=== PATIENT | male | born 1965 | race Caucasian/White ===

== ENCOUNTER 2016-06-12 12:30 | Emergency (ER) | payer BC, OTHER ==
[2016-06-12 12:41] VITALS: BP 154/76; PULSE 97; TEMP 98; BMI 31.4
--- NOTE | 2016-06-12 13:00 | PDOC ---
History of Present Illness <Wai Cleary - Last Filed: 06/12/16 13:37> - General History Source: Patient - History of Present Illness Initial Comments: 06/12/16 15:35 Mr. Cabrera is a 51 y/o male with a PMH of CVA, anxiety, panic attacks, presents to the ED today complaining of cough and conjunctivitis. Pt. states that his cough started last night before bedtime. He also developed a sore throat at that time. He states that his cough is dry and does not bring up any phlegm. Does not report any fevers at this time, but admits to chills and chest pain. Denies SOB, palptiations, leg pain, N/V/D. He has not traveled out of the country. No sick contacts. Received his flu shot. <Sanam Espinal - Last Filed: 06/16/16 22:14> - General Chief Complaint: Respiratory Stated Complaint: CHEST PAIN, PINK EYE Time Seen by Provider: 06/12/16 12:49 Past History <Wai Cleary - Last Filed: 06/12/16 13:37> - Past Medical History CVA: Yes (x 2: 2012) Hypercholesterolemia: Yes Kidney Stones: Yes (H/O) Psychiatric Problems: Yes (ANXIETY, PANIC ATTACKS) Seizures: No - Surgical History Abdominal Surgery: Yes Cardiac Surgery: Yes (cardiac catheterization) Cholecystectomy: Yes - Psycho/Social/Smoking Cessation Hx Anxiety: Yes Suicidal Ideation: No Smoking Status: Yes Smoking History: Current every day smoker Have you smoked in the past 12 months: Yes Number of Cigarettes Smoked Daily: 20 Information on smoking cessation initiated: No 'Breaking Loose' booklet given: 07/14/15 Hx Alcohol Use: Yes (SOCIAL) Drug/Substance Use Hx: No Substance Use Type: None Hx Substance Use Treatment: No <Sanam Espinal - Last Filed: 06/16/16 22:14> - Past Medical History Allergies/Adverse Reactions: Allergies Allergy/AdvReac Type Severity Reaction Status Date / Time enedelia flavor Allergy Intermediate Hives Verified 06/12/16 12:37 Iodinated Contrast Media - Allergy Verified 06/12/16 12:37 Oral and [Iodinated Contrast Media - IV Dye] iodine Allergy Hives Verified 06/12/16 12:37 Home Medications: Ambulatory Orders Aspirin [ASA -] 81 mg PO DAILY 12/28/13 Omeprazole [Prilosec (RX)] 40 mg PO DAILY 10/09/14 Amlodipine Besylate [Norvasc -] 5 mg PO DAILY 06/23/15 Paroxetine HCl [Paxil] 20 mg PO DAILY 07/14/15 Albuterol Sulfate Inhaler - [Ventolin HFA Inhaler -] 1 puff IH Q4H PRN #1 inhaler 06/12/16 *Physical Exam - Vital Signs Last Vital Signs Temp Pulse Resp BP Pulse Ox 98 F 97 H 19 154/76 97 06/12/16 12:37 06/12/16 12:37 06/12/16 12:37 06/12/16 12:37 06/12/16 12:37 <Wai Cleary - Last Filed: 06/12/16 13:37> - Vital Signs Last Vital Signs Temp Pulse Resp BP Pulse Ox 98 F 97 H 19 154/76 97 06/12/16 12:37 06/12/16 12:37 06/12/16 12:37 06/12/16 12:37 06/12/16 12:37 - Physical Exam Comments: 06/12/16 16:27 GENERAL: The patient is awake, alert, and fully oriented, in no acute distress. HEAD: Normal with no signs of trauma. ENT: Pupils equal, round and reactive to light, extraocular movements intact, sclera anicteric, bilateral diffuse conjunctivitis. Neck supple. LUNGS: Clear to auscultation bilaterally. Normal excursion. No respiratory distress or use of accessory muscles. CV: RRR, S1/S2, no MRG. Cap refill < 2 sec. ABDOMEN: Soft, non-distended, non-tender. EXTREMITIES: Normal range of motion, no edema. NEUROLOGICAL: Normal speech, normal gait. CN II-XII grossly intact. PSYCH: Normal mood, normal affect. SKIN: Warm, dry, normal turgor, no rashes or lesions noted. <Sanam Espinal - Last Filed: 06/16/16 22:14> Heart Score/ECG Review #1 ECG reviewed & interpreted by me at: 12:35 General ECG Interpretation: Sinus Rhythm, Normal Rate (89), Normal Intervals ( RBBB), No acute ischemic changes Compared to previous ECG there are: No significant change (c/w 07/14/15) <Wai Cleary - Last Filed: 06/12/16 13:37> ED Treatment Course - LABORATORY CBC & Chemistry Diagram: 06/12/16 13:15 06/12/16 13:15 - Medications Given in the ED: ED Medications Discontinued Medications Generic Name Dose Route Start Last Admin Trade Name Celine PRN Reason Stop Dose Admin Ibuprofen 600 mg 06/12/16 13:02 06/12/16 13:22 Motrin - PO 06/12/16 13:03 600 mg ONCE ONE Administration <Wai Cleary - Last Filed: 06/12/16 13:37> - LABORATORY CBC & Chemistry Diagram: 06/12/16 13:15 06/12/16 13:15 <Sanam Espinal - Last Filed: 06/16/16 22:14> Medical Decision Making - Medical Decision Making 06/12/16 14:37 Mr. Cabrera is a 51 y/o male with a significant PMH who presents with URI complaints and some chest pain. Considering influenza, vs. pneumonia. Will r/o ACS given atypical chest pain complaints. Will order CBC, CMP, influenza swab to r/o infectious process. EKG and Cardiac profile to r/o ACS Albuterol inhaler and motrin for symptomatic relief. Will re-evaluate. 06/12/16 15:30 EKG is normal sinus rhythm with a rate of 87. Old RBBB present. No acute ischemic changes. Labs are within normal limits at this time. Influenza is negative. Pt. feels better after albuterol treatment Still waiting on troponin reading. Contacted lab and was stated they had an issue with the machine. If Trop negative will discharge. 06/12/16 16:59 Called lab for troponin. Did not moss picker at this time. Will try again 06/12/16 17:54 Troponin is negative at this time. Will discharge home <Sanam Espinal - Last Filed: 06/16/16 22:14> *DC/Admit/Observation/Transfer <Wai Cleary - Last Filed: 06/12/16 13:37> - Discharge Dispostion Admit: No <Sanam Espinal - Last Filed: 06/16/16 22:14> Diagnosis at time of Disposition: Viral upper respiratory infection - Discharge Dispostion Disposition: HOME Condition at time of disposition: Improved - Prescriptions Prescriptions: Albuterol Sulfate Inhaler - [Ventolin HFA Inhaler -] 1 puff IH Q4H PRN #1 inhaler PRN Reason: Shortness Of Breath - Referrals Referrals: Jamison Echeverria MD [Primary Care Provider] - - Patient Instructions Printed Discharge Instructions: DI for Viral Upper Respiratory Infection -- Adult Additional Instructions: You have an upper respiratory infection. Your lab work and EKG were normal today. You were prescribed an inhaler. Use it as needed for shortness of breath and cough. Keep hydrated. If you experience increasing SOB, worsening sore throat, new fevers, return to the ED
[2016-06-12] MEDS ORDERED: IBUPROFEN 600 MG TABLET (FP) PO ONE ×2 (13:02→13:07)
[2016-06-12 13:32] LABS: EOSINOPHIL 2.5 % (0-4.5); MCHC 35.2 g/dl (32.0-35.9); MEAN CELL VOLUME 88.1 fl (80-96); MEAN PLT VOLUME 9.4 fl (7.5-11.1); NEUTROPHILS 65.1 % (42.8-82.8); PLATELET COUNT 163 K/MM3 (134-434); RDW 12.5 % (11.9-15.9)
[2016-06-12] MEDS ORDERED: ALBUTEROL SO4 2.5/IPRATROPIUM 0.5 INH SOL 3 ML VIAL.NEB. NEB ONE ×2 (13:39→13:48)
--- NOTE | 2016-06-12 13:39 | PDOC ---
*Physical Exam - Vital Signs Last Vital Signs Temp Pulse Resp BP Pulse Ox 98 F 97 H 19 154/76 97 06/12/16 12:37 06/12/16 12:37 06/12/16 12:37 06/12/16 12:37 06/12/16 12:37 - Physical Exam Comments: 06/12/16 13:37 Vital signs normal. Mild bilateral conjunctivitis without chemosis or preseptal cellulitis Oropharynx clear Lungs are clear, no crackles or wheezing ED Treatment Course - LABORATORY CBC & Chemistry Diagram: 06/12/16 13:15 06/12/16 13:15 - Medications Given in the ED: ED Medications Discontinued Medications Generic Name Dose Route Start Last Admin Trade Name Freq PRN Reason Stop Dose Admin Ibuprofen 600 mg 06/12/16 13:02 06/12/16 13:22 Motrin - PO 06/12/16 13:03 600 mg ONCE ONE Administration Medical Decision Making - Medical Decision Making 06/12/16 13:38 Patient seen and evaluated with the nurse practitioner. I agree with the overall evaluation, assessment, and management with the following summary of visit: 51-year-old male presents with URI symptoms for 3 or 4 days, worsening chest congestion and setting of nasal congestion/sore throat/conjunctivitis/dry cough. No persistent chest pain or dyspnea on exertion, no orthopnea, no fevers or chills. Presentation seems most consistent with URI, likely viral bronchitis. Atypical for ACS, EKG is nonischemic, rule out pneumonia. Labs sent EKG, chest x-ray Trial of nebulizer Reassess and dispo *DC/Admit/Observation/Transfer Diagnosis at time of Disposition: Viral upper respiratory tract infection
[2016-06-12 15:42] LABS: ALK PHOS 102 U/L (45-117); ANION GAP 14 (8-16); BILIRUBIN,TOTAL 0.4 mg/dL (0.2-1.0); CALCIUM 9.3 mg/dL (8.5-10.1); CO2 21 mmol/L (21-32); GLUCOSE,RANDOM 110 mg/dL (74-106); SGPT/ALT 48 U/L (12-78); TOT PROT 7.3 g/dl (6.4-8.2)
[2016-06-12 15:45] LABS: SGOT/AST 23 U/L (15-37)
[2016-06-12 17:44] LABS: TROPONIN I < 0.02 ng/ml (0.00-0.05)
--- NOTE | 2016-06-13 23:25 | EKG ---
Test Reason : Blood Pressure : / mmHG Vent. Rate : 089 BPM Atrial Rate : 089 BPM P-R Int : 170 ms QRS Dur : 148 ms QT Int : 388 ms P-R-T Axes : 054 022 054 degrees QTc Int : 472 ms NORMAL SINUS RHYTHM RIGHT BUNDLE BRANCH BLOCK INFERIOR INFARCT (CITED ON OR BEFORE 23-JUN-2015) ABNORMAL ECG WHEN COMPARED WITH ECG OF 14-JUL-2015 20:25, NO SIGNIFICANT CHANGE WAS FOUND Confirmed by BLACK DONOHUE MD ([id number]) on 06/13/2016 11:25:41 PM Referred By: Confirmed By:BLACK DONOHUE MD
== END 2016-06-12 18:25 | disposition home or self-care (01) ==
LOC: JER 12:30
PROC: 3E0F7GC Introduction of Other Therapeutic Substance into Respiratory Tract, Via Natural or Artificial Opening (ICD-10-PCS; principal; 2016-06-12)
DX: J06.9 Acute upper respiratory infection, unspecified (principal); R07.89 Other chest pain; Z98.61 Coronary angioplasty status; Z86.73 Personal history of transient ischemic attack (TIA), and cerebral infarction without residual deficits; F41.0 Panic disorder [episodic paroxysmal anxiety]
CPT/HCPCS: 36415; 71020-TC; 80053; 82550; 82553; 84484; 85025; 87804; 93005; 93010; 99281-25

== ENCOUNTER 2018-11-17 11:00 | Emergency (ER) | payer BC ==
[2018-11-17 11:05] VITALS: BP 124/80; PULSE 91; TEMP 98.6; BMI 30.1
--- NOTE | 2018-11-17 11:21 | PDOC ---
History of Present Illness - General Chief Complaint: Ear Problem Stated Complaint: LT. EAR PAIN Time Seen by Provider: 11/17/18 11:06 History Source: Patient - History of Present Illness Associated Symptoms: denies: fever/chills, headaches (L ear pain) Past History - Travel Traveled outside of the country in the last 30 days: No Close contact w/someone who was outside of country & ill: No - Past Medical History Allergies/Adverse Reactions: Allergies Allergy/AdvReac Type Severity Reaction Status Date / Time enedelia flavor Allergy Intermediate Hives Verified 11/17/18 11:04 Iodinated Contrast- Oral and Allergy Verified 11/17/18 11:04 IV Dye [Iodinated Contrast Media - IV Dye] iodine Allergy Hives Verified 11/17/18 11:04 Home Medications: Ambulatory Orders Aspirin [ASA -] 81 mg PO DAILY 12/28/13 Amlodipine Besylate [Norvasc -] 5 mg PO DAILY 06/23/15 Paroxetine HCl [Paxil] 20 mg PO DAILY 07/14/15 Atorvastatin Ca [Lipitor] 20 mg PO HS 11/17/18 Neomycin/Polymyxn/Hc [Cortisporin Otic Suspenstion -] 5 drop AD TID 10 Days #1 bottle 11/17/18 CVA: Yes (x 2: 2011) COPD: No Hypercholesterolemia: Yes Kidney Stones: Yes (H/O) Psychiatric Problems: Yes (ANXIETY, PANIC ATTACKS) Seizures: No - Surgical History Abdominal Surgery: Yes Cardiac Surgery: Yes (cardiac catheterization) Cholecystectomy: Yes - Suicide/Smoking/Psychosocial Hx Smoking Status: Yes Smoking History: Current every day smoker Have you smoked in the past 12 months: Yes Number of Cigarettes Smoked Daily: 10 Information on smoking cessation initiated: No 'Breaking Loose' booklet given: 03/30/17 Hx Alcohol Use: Yes (occasional) Drug/Substance Use Hx: No Substance Use Type: None Hx Substance Use Treatment: No Review of Systems - Review of Systems Is the patient limited Chadian proficient: No Constitutional: No: Chills, Fever HEENTM: Yes: Ear Pain. No: Ear Discharge, Nose Congestion, Hearing Loss, Throat Pain, Throat Swelling Respiratory: No: Shortness of Breath Cardiac (ROS): No: Chest Pain Neurological: No: Headache, Numbness, Weakness, Dizziness *Physical Exam - Vital Signs Last Vital Signs Temp Pulse Resp BP Pulse Ox 98.6 F 91 H 18 124/80 99 11/17/18 11:02 11/17/18 11:02 11/17/18 11:02 11/17/18 11:02 11/17/18 11:02 - Physical Exam General Appearance: Yes: Nourished HEENT: positive: Other (L ear:" external canal with swelling and erythema, TM wnl b/l) Neck: positive: Supple Respiratory/Chest: positive: Lungs Clear, Normal Breath Sounds Cardiovascular: positive: Regular Rhythm, Regular Rate, S1, S2 Neurologic: positive: supervisor of communications II-XII NML intact, Fully Oriented, Alert, Normal Mood/ Affect, Normal Response, Motor Strength 09/15 Medical Decision Making - Medical Decision Making 53y/o M with L ear discomfort X 4 days denies trauma, hearing loss, fever, chills exam consistent with Left OE Rx for antibiotics sent to pharmacy *DC/Admit/Observation/Transfer Diagnosis at time of Disposition: Otitis externa Qualifiers: Otitis externa type: unspecified type Chronicity: acute Laterality: left Qualified Code(s): H60.502 - Unspecified acute noninfective otitis externa, left ear - Discharge Dispostion Disposition: HOME Condition at time of disposition: Stable Decision to Admit order: No - Prescriptions Prescriptions: Neomycin/Polymyxn/Hc [Cortisporin Otic Suspenstion -] 5 drop AD TID 10 Days #1 bottle - Referrals Referrals: Jamison Echeverria RES [Primary Care Provider] - - Patient Instructions Printed Discharge Instructions: Otitis Externa Additional Instructions: Please use antibiotics drops a prescribed follow up with your primary care doctor take motrin or Tylenol for pain return to the ER if worsening symptoms occurs - Post Discharge Activity
[2018-11-17] MEDS ORDERED: IBUPROFEN 400 MG TABLET (FP) PO ONE ×2 (11:22→11:24)
== END 2018-11-17 11:26 | disposition home or self-care (01) ==
LOC: JERFT 11:00
DX: H60.502 Unspecified acute noninfective otitis externa, left ear (principal); F17.210 Nicotine dependence, cigarettes, uncomplicated; E70.0 Classical phenylketonuria; F41.9 Anxiety disorder, unspecified
CPT/HCPCS: 99281-25

== ENCOUNTER 2018-11-27 12:20 | Inpatient (IN) | payer BC ==
[2018-11-27 12:33] VITALS: BMI 30.1
--- NOTE | 2018-11-27 14:06 | PDOC ---
History of Present Illness - General Chief Complaint: Lightheaded Stated Complaint: DIZZY/RUSSO/NECK PAIN/CLOGGED EARS Time Seen by Provider: 11/27/18 13:16 History Source: Patient, Significant Other (Girlfriend present at bedside.), Old Records Exam Limitations: No Limitations - History of Present Illness Initial Comments: HPI: 53 y/o male presenting to [facility] ER complaining one week of worsening of right sided neck pain with radiation into the right occiput and to the right shoulder. Pain made worse with right lateral rotation and right lateral flexion of the neck. Associates numbness overlying right shoulder with these movements. Further complaining that both ears feel clogged, that he is having trouble formulating thoughts, and dyspnea on exertion without chest pain or palpitations. Endorses chronic right shoulder pain with known cervical radiculopathy on MRI from 2016. Has not followed up with neurosurgeon. No personal or familial h/o of blood clots. No recent travel, unilateral calf pain, or cancer diagnosis. PCP: Dr. 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 No periods of breathlessness at rest. GI: Denies vomiting or diarrhea : Denies painful urination or hematuria. MSK: Denies recent trauma Skin: Denies new rashes Neuro: Denies new numbness or tingling or weakness Endocrine: Denies polyuria Heme: Denies bleeding or bruising Physical Examination: Constitutional: Well-developed, well-nourished adult male in no acute distress or obvious discomfort. Muscular body habitus. Found sitting upright on edge of hospital bed. Alert and oriented x4. Answered all questions appropriately and completely. Speech was non-labored, non-pressured. Head: Normocephalic. No obvious external signs of trauma. Eyes: Sclerae white. Ears: External auditory canals and tympanic membranes pearly calabrese. Hearing grossly intact. Nose: No nasal discharge. Throat: Oral cavity and pharynx normal. No inflammation, swelling, exudate, or lesions. Teeth and gingiva in good general condition. Neck: Tenderness to right lateral neck. Right lateral rotation limited when compared to left. Trachea is midline. No c-spine tenderness or step off. No overlying skin changes or signs of trauma. Cardiovascular / Chest: Regular rate and regular rhythm. No murmur, rubs, clicks , or gallops. Peripheral pulses: radial pulses full. Respiratory: Breathing unlabored. Equal chest rise and fall. Clear to auscultation bilaterally. No stridor, no wheezing, no rhonchi. Gastrointestinal: abdomen is soft, non-tender, non-distended. Neuro: Alert and oriented. Moving all four extremities spontaneously. Upper extremity: proximal and distal strength 5/5. [facility] Director strength 5/5 - equal and symmetric. No nuchal rigidity. Skin: Warm, dry, and intact. Psych: Affect: appropriate. Mood: normal. MDM: *Reviewed vital signs, nursing notes, and prior visit documentation (if available). 53 y/o male presenting with right sided neck pain, sensation of bilateral ear fullness, and vague sense of impaired mentation. Known h/o of cervical radiculopathy based on MRI from 2016, for which the pt has failed to f/u with neurosurgery as referred. Afebrile. Vitals unremarkable for hypotension or tachycardia. Suspect likely worsening of radiculopathy. Low suspicion for CVA or carotid dissection but will investigate further given previous CVA. Pt is allergic to medical iodine so will obtain non-contrast head and c-spine CTs. EKG unremarkable for ischemic changes. No change when compared to previous study dated 12 Jun 2016. Troponin not elevated. Will not obtain three hour troponin given week long duration of symptoms. CBC unremarkable for leukocytosis. CMP unremarkable for significant electrolyte derangement. CXR unremarkable for acute cardiopulmonary process. Head CT unremarkable for evidence of acute intracranial process. C2-C3 and C3-C4 right foraminal stenosis noted. 15:51 Telephone discussion with neurosurgeon Dr. Mccray. Verbally appraised of the pts HPI, ED course, and current plan of management. Suggested cervical MRI to further evaluate the pain. 20:[address] Mccray, who reviewed the cervical MRI. Will evaluate the pt in the emergency department. 21:56 Pt evaluated bedside by Dr. Meier. Consult note pending. Pt would like to be discharged home and return for semi-elective procedure. Pt to call Dr. Sandoval clinic tomorrow for further instructions. Rigid cervical collar applied. Pt to f/u w/ PCP tomorrow for further evaluation and pre-op clearance. Return precautions provided. Copies of todays results provided. Pts PCP, Dr. Jamison Echeverria, called and requested the pt be admitted to his service. Pt discussed his symptoms via telephone with Dr. Echeverria and then agreed to be admitted. Rachid Morales M.D., PGY2 Emergency Medicine Resident Past History - Past Medical History Allergies/Adverse Reactions: Allergies Allergy/AdvReac Type Severity Reaction Status Date / Time enedelia flavor Allergy Intermediate Hives Verified 11/27/18 12:57 Iodinated Contrast- Oral and Allergy Verified 11/27/18 12:57 IV Dye [Iodinated Contrast Media - IV Dye] iodine Allergy Hives Verified 11/27/18 12:57 Home Medications: Ambulatory Orders Aspirin [ASA -] 81 mg PO DAILY 12/28/13 Amlodipine Besylate [Norvasc -] 5 mg PO DAILY 06/23/15 Paroxetine HCl [Paxil] 20 mg PO DAILY 07/14/15 Alprazolam [Xanax] 0.25 mg PO PRN PRN 11/27/18 Omeprazole Magnesium [Prilosec] 10 mg PO DAILY 11/27/18 Rosuvastatin Calcium 20 mg PO HS 11/27/18 CVA: Yes (x 2: 2011) COPD: No Hypercholesterolemia: Yes Kidney Stones: Yes (H/O) Psychiatric Problems: Yes (ANXIETY, PANIC ATTACKS) Seizures: No - Surgical History Abdominal Surgery: Yes Cardiac Surgery: Yes (cardiac catheterization) Cholecystectomy: Yes - Immunization History Immunization Up to Date: No - Suicide/Smoking/Psychosocial Hx Smoking Status: Yes Smoking History: Current every day smoker Have you smoked in the past 12 months: Yes Number of Cigarettes Smoked Daily: 20 Information on smoking cessation initiated: No 'Breaking Loose' booklet given: 03/30/17 Hx Alcohol Use: No Drug/Substance Use Hx: No Substance Use Type: None Hx Substance Use Treatment: No *Physical Exam - Vital Signs Last Vital Signs Temp Pulse Resp BP Pulse Ox 98.5 F 78 18 142/93 100 11/27/18 12:30 11/27/18 12:30 11/27/18 12:30 11/27/18 12:30 11/27/18 12:30 ED Treatment Course - LABORATORY CBC & Chemistry Diagram: 11/27/18 14:05 11/27/18 14:05 - RADIOLOGY Radiology Studies Ordered: Category Date Time Status CERVICAL SPINE CT W/O CONTR [CT] Stat CT Scan 11/27/18 14:[address] WITHOUT CONTRAST [CT] Stat CT Scan 11/27/18 14:03 Ordered CHEST PA & LAT [RAD] Stat Radiology 11/27/18 13:53 Ordered Medical Decision Making - Medical Decision Making 11/27/18 18:[address] Mccray. Please obtain MRI. *DC/Admit/Observation/Transfer Diagnosis at time of Disposition: Neck pain on right side - Discharge Dispostion Condition at time of disposition: Improved Decision to Admit order: Yes - Referrals Referrals: Jamison Echeverria MD [Primary Care Provider] - Carlos Alberto Mccray MD, FAANS [Staff Physician] - - Patient Instructions Printed Discharge Instructions: DI for Cervical Radiculopathy Additional Instructions: You were seen today for right shoulder and neck pain. Your symptoms are likely for cervical radiculopathy. You were evaluated by Dr. Mccray, a neurosurgeon. Follow his recommendations. Call his clinic tomorrow for further instructions on the date of surgery. Follow up with your primary care doctor tomorrow to discuss the surgery. A copy of todays results are attached to this packet. Take it to the appointment so your doctor can review them. Go to the nearest emergency department if your condition worsens or you feel like you need additional emergency evaluation. Print Language: CANADIAN - Post Discharge Activity Forms/Work/School Notes: Back to Work
[2018-11-27 14:13] LABS: BASO % 1.3 % (0-2.0); EOS % 3.4 % (0-4.5); HEMATOCRIT 39.4 % (35.4-49); HEMOGLOBIN 13.5 GM/dL (11.7-16.9); LYMPH % 25.5 % (8-40); MCH 31.2 pg (25.7-33.7); MCHC 34.4 g/dl (32.0-35.9); MEAN CELL VOLUME 90.9 fl (80-96); MONO % 7.5 % (3.8-10.2); NEUT % 62.3 % (42.8-82.8); PLATELET COUNT 197 K/MM3 (134-434); RBC 4.33 M/mm3 (4.00-5.60); RDW 12.5 % (11.9-15.9); WHITE BLOOD COUNT 7.2 K/mm3 (4.0-10.0)
[2018-11-27 14:39] LABS: ALBUMIN 4.4 g/dl (3.4-5.0); BILIRUBIN,TOTAL 0.3 mg/dL (0.2-1); BLOOD UREA NITROGEN 13.9 mg/dL (7-18); CALCIUM 9.6 mg/dL (8.5-10.1); POTASSIUM 4.5 mmol/L (3.5-5.1); TOT PROT 7.6 g/dl (6.4-8.2)
--- NOTE | 2018-11-27 15:54 | EKG ---
Test Reason : Blood Pressure : / mmHG Vent. Rate : 065 BPM Atrial Rate : 065 BPM P-R Int : 202 ms QRS Dur : 152 ms QT Int : 418 ms P-R-T Axes : 041 046 048 degrees QTc Int : 434 ms NORMAL SINUS RHYTHM RIGHT BUNDLE BRANCH BLOCK CANNOT RULE OUT INFERIOR INFARCT (CITED ON OR BEFORE 23-JUN-2015) ABNORMAL ECG WHEN COMPARED WITH ECG OF 12-JUN-2016 12:35, NO SIGNIFICANT CHANGE WAS FOUND Confirmed by RED PRINCE MD ([id number]) on 11/27/2018 3:54:00 PM Referred By: Confirmed By:RED PRINCE MD
--- NOTE | 2018-11-27 16:39 | PDOC ---
Documentation entered by Franchesca Wang SCRIBE, acting as scribe for Evelyn Love MD. Evelyn Love MD: This documentation has been prepared by the Felipe turner Brenda, SCRIBE, under my direction and personally reviewed by me in its entirety. I confirm that the documentation accurately reflects all work, treatment, procedures, and medical decision making performed by me. Attending Attestation - Resident Resident Name: Rachid Morales - ED Attending Attestation I have performed the following: I have examined & evaluated the patient, The case was reviewed & discussed with the resident, I agree w/resident's findings & plan, Exceptions are as noted - HPI HPI: 11/27/18 15:45 The patient is a 53 year old male, with a significant PMH of cervical radiculopathy , CVA and otaus externus who presents to the emergency department with 1.5 weeks of progressively worsening right sided neck pain that radiates to the right occiput and right shoulder. He reports that the pain is aggravated by turning his head to the right and lifting his arms above shoulder level. The patient also reports associated feelings of clogged ears and discombobulated thoughts. He notes that for the past week, he has been experiencing decreased exercise intolerance, where he is more commonly out of breath. The patient denies chest pain. Denies fever, chills, nausea, vomiting, diarrhea and constipation. Denies dysuria, frequency, urgency and hematuria. Allergies: Iodine Past surgical history: Social history: Smoker, stopped 3 days ago, Endorses occasional weekend social drinking, Denies illicit drugs. 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 PCP: Dr. Jamison Echeverria - Physicial Exam PE: 11/27/18 15:49 GENERAL: The patient is in no acute distress. HEAD: Normal with no signs of trauma. EYES: PERRLA, EOMI, sclera anicteric, conjunctiva clear. ENT: Ears normal, nares patent, oropharynx clear without exudates. Moist mucous membranes. NECK: Normal range of motion, supple without lymphadenopathy, JVD, or masses. LUNGS: Breath sounds equal, clear to auscultation bilaterally. No wheezes, and no crackles. HEART:Regular rate and rhythm, normal S1 and S2 without murmur, rub or gallop. ABDOMEN: Soft, nontender, normoactive bowel sounds. No guarding, no rebound. No masses palpable. EXTREMITIES: Normal range of motion, no edema. No clubbing or cyanosis. No erythema, or tenderness. NEUROLOGICAL: Cranial nerves II through XII grossly intact. Normal speech. No focal neurological deficits. MUSCULOSKELETAL: Back non-tender to palpation, no CVA tenderness SKIN: Warm, Dry, normal turgor, no rashes or lesions noted. - Medical Decision Making 11/27/18 16:24 Mr. Cabrera Is a 53-year-old male with a history of cervical radiculopathy who presents emergency department with a complaint of neck pain as well as upper shoulder pain. His symptoms began several years ago. He is status post an MRI of the cervical spine which showed multilevel disc herniation. Initial plan was physical therapy which she had. Patient states this minimally helped his symptoms. Patient notes a progressive worsening of his symptoms over the past 3-4 months. 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 Patient denies any weakness or numbness. His predominant symptom is pain. He became concerned because he has noticed that his ears feel full and he intermittently feels like his brain is foggy On examination Sensation in tact Motor 5/5 in upper extremity and hands bilaterally Will do: Labs CT head and C spine NSGY consult Twelve-lead EKG was performed and reviewed by me. There is normal sinus rhythm with a normal rate. The axis is normal. The intervals are normal. There are no ST or T wave abnormalities. Impression: Normal twelve-lead EKG 11/27/18 16:28 CT head - No acute ischemic changes, no mass or mass effect Old infarct noted in the right posterior, temporal, occipital lobe (watershed zone between right MCA and MANAGEMENT SPECIALIST) 11/27/18 16:37 EKG - NSR rate of 65 bpm, RBBB, 11/27/18 16:38 Laboratory Tests 11/27/18 11/27/18 11/27/18 14:05 14:05 14:05 WBC 7.2 Hgb 13.5 Hct 39.4 Plt Count 197 D BUN 13.9 Creatinine 1.0 Troponin I < 0.02 11/27/18 18:[address] Mccray He will see this patient in the ER MRI ordered Signed out to overnight team pending MRI
[2018-11-27] MEDS ORDERED: diazePAM 2 MG TABLET PO ONE (17:57)
[2018-11-27] MEDS ORDERED: diazePAM 2 MG TABLET ONE (17:58)
--- NOTE | 2018-11-27 23:01 | CONSULT ---
Consult - text type - Consultation Consultation Note: NEUROSURGERY CONSULTATION Tremaine Cabrera is a pleasant 53year old male who has achief complaint of acute right arm and neck pain. Although the patient has a long history of neck and arm pains, he describes acute progression today after an injury at the gym last week. He describes severe neck pain which is increased by neck motion as well as Right arm radicular pains. The patient was referred to [facility] by Dr. Rachid Morales in the [facility] ER for further evaluation and management. The patient works in [employer] and wears a hard hat. He has struck his head many times in the past. The patient has numbness and tingling in the hands. The patienthas not been dropping things and has no current problems with fine motor tasks although he acknowledges a history of being clumsy. On Physical Examination, he has hyperreflexia in his lower extremities. He has some diminished sensation in his hands and severe limitations of neck range of motion. He has positive Spurling' s sign Right greater than Left. MRI Cervical demonstrates degenerative loss of Lordosis and moderate to severe spondylosis with osteophytes, disc bulges and hypertrophic posterior longitudinal ligament and ligamentum flavum which when combined with a congenitally narrow spinal canal results in effacement of the ventral and dorsal CSF spaces and deformation of the Cervical spinal cord. There appear to be severe facet arthropathy with possible acute hemorrhage/ligamentous injury which are worst at C23 and C34. The AP spinal canal diameters are: C23 = 8.5mm; C34 = 8.1mm; C45 = 10mm; C56 = 8.5mm; & C67 = 9.0mm. There has been interval progression since the last MRI in May 2015. There are several findings consistent with acute traumatic injury including fluid and facet arthropathy at C34 and edema within the bones at C3 and C4 extending into the laminae. The facets of C23 and C34 are hypertrophic, particularly on the Right. After review of his symptoms and imaging, the patient would likely benefit from decompression and stabilization in the Cervical spine. I described the risks, benefits and alternativesof C2-7 Laminectomies with C2-5 osteotomies and correction of deformity with C2-C7 lateral mass/pars instrumentation and fusion in great detail. I explained that the risks included, but were not limited to: , coma, paralysis, bleeding, infection, CSF leak possibly requiring spinal drainage or additional surgery, failure to fuse, failure to improve, instrumentation migration/malposition/malfunction and the need for additional surgery. I offered the patient the option to seek another opinion or another surgeon. All questions were answered. Informed consent was obtained. I made a series of illustrations to outline the anatomy, pathology, surgical approaches and potential complications. I explained that there would remain a 20% possibility that a subsequent ventral procedure would be required. The patient asks that we proceed with Cervical surgery as described. He wishes to speak with his children prior to the surgery and is considering going home although I explained that this may delay his surgery. Patient's PCP is Dr. Jamison Jones on [place], [place]. - I have contacted Dr. Jones and we have discussed his case and medical fitness to proceed. We discussed the advisability of the patient remaining in the hospital for surgical treatment and IV steroids with GI prophylaxis. - Surgery is tentatively scheduled for Thursday November 29, 2018 - I offered the patient a Cervical collar to protect himself and gave him and his toys and games hand finisher a list of warning signs which would prompt further evaluation or expedited surgery.
[2018-11-28] MEDS: DEXAMETHASONE SOD PHOSPHATE 4 MG/1 ML VIAL IVPUSH SCH ×4 (04:23→22:31)
[2018-11-28] MEDS: amLODIPine BESYLATE 5 MG TABLET (FP) PO SCH (09:49)
[2018-11-28] MEDS: NAPROXEN 500 MG TABLET (FP) PO SCH ×3 (09:49→22:35)
[2018-11-28] MEDS: PARoxetine HCL 10 MG TABLET PO SCH (09:49)
--- NOTE | 2018-11-28 10:41 | HP ---
Admitting History and Physical - Admission Chief Complaint: while working out neck pain w decreased rom. ? neare syncope due to pain uext slyitly numb. 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: Yes: Alzheimer's Psych: Yes: Anxiety, Depression - Past Surgical History Additional Past Surgical History: lap choly - Smoking History Smoking history: Current every day smoker Have you smoked in the past 12 months: Yes Aproximately how many cigarettes per day: 20 - Alcohol/Substance Use Hx Alcohol Use: No History of Substance Use: reports: Cocaine - Social History Usual Living Arrangement: Yes: Alone ADL: Independent History of Recent Travel: No Home Medications - Allergies Allergies/Adverse Reactions: Allergies Allergy/AdvReac Type Severity Reaction Status Date / Time enedelia flavor Allergy Intermediate Hives Verified 11/27/18 12:57 Iodinated Contrast- Oral and Allergy Verified 11/27/18 12:57 IV Dye [Iodinated Contrast Media - IV Dye] iodine Allergy Hives Verified 11/27/18 12:57 - Home Medications Home Medications: Ambulatory Orders Aspirin [ASA -] 81 mg PO DAILY 12/28/13 Amlodipine Besylate [Norvasc -] 5 mg PO DAILY 06/23/15 Paroxetine HCl [Paxil] 20 mg PO DAILY 07/14/15 Alprazolam [Xanax] 0.25 mg PO PRN PRN 11/27/18 Omeprazole Magnesium [Prilosec] 10 mg PO DAILY 11/27/18 Rosuvastatin Calcium 20 mg PO HS 11/27/18 Review of Systems - Review of Systems Constitutional: reports: Weakness (neck coller) Eyes: reports: No Symptoms HENT: reports: No Symptoms, Other (neck pain scale 3) Neck: reports: Decreased ROM Cardiovascular: reports: No Symptoms Respiratory: reports: No Symptoms Gastrointestinal: reports: No Symptoms Genitourinary: reports: No Symptoms Breasts: reports: No Symptoms Reported Musculoskeletal: reports: No Symptoms Integumentary: reports: No Symptoms Neurological: reports: No Symptoms, Numbness Endocrine: reports: No Symptoms Hematology/Lymphatic: reports: No Symptoms Psychiatric: reports: Anxiety, Depression Physical Examination Vital Signs: Vital Signs Temperature 98.1 F 11/28/18 03:30 Pulse Rate 65 11/28/18 04:00 Respiratory Rate 18 11/28/18 03:30 Blood Pressure 132/82 11/28/18 04:00 O2 Sat by Pulse Oximetry (%) 97 11/28/18 03:30 Constitutional: Yes: Well Nourished Eyes: Yes: WNL HENT: Yes: WNL Neck: Yes: Decreased ROM Cardiovascular: Yes: WNL Respiratory: Yes: WNL Gastrointestinal: Yes: WNL Peripheral Pulses WNL: Yes Integumentary: Yes: WNL Wound/Incision: Yes: Clean/Dry Neurological: Yes: WNL ...Motor Strength: WNL Psychiatric: Yes: WNL Labs: CBC, BMP 11/27/18 14:05 11/27/18 14:05 Assessment/Plan cleared for sx neck for am npo after mn
--- NOTE | 2018-11-28 14:59 | PN ---
Progress Note (short form) - Note Progress Note: Patient remains Neurologically stable. Discussed surgery and treatment plans once again. All questions answered. Plan for surgery in AM. -NPO p MN -GI/DVT prophylaxis
[2018-11-29] MEDS: DEXAMETHASONE SOD PHOSPHATE 4 MG/1 ML VIAL IVPUSH SCH ×3 (02:28→21:29)
[2018-11-29] MEDS ORDERED: THROMBIN (BOVINE) 20,000 UNIT VIAL TP ONE (08:05)
[2018-11-29] MEDS ORDERED: LIDOCAINE 1%-EPI 1:100,000 30 ML MDV IJ ONE (08:05)
[2018-11-29] MEDS ORDERED: BUPIVACAINE HCL/PF 0.5% (5MG/ML) 10 ML VIAL ONE (08:05)
[2018-11-29] MEDS ORDERED: GENTAMICIN SO4 80 MG/2 ML VIAL ONE (08:05)
[2018-11-29] MEDS: amLODIPine BESYLATE 5 MG TABLET (FP) PO SCH (09:31)
[2018-11-29] MEDS ORDERED: BACITRACIN 15 GM TUBE TOPICAL OINTMENT ONE (09:50)
[2018-11-29] MEDS ORDERED: LIDOCAINE HCL 0.5%, 5 MG/ML (50mL SDVIAL) ONE (10:25)
[2018-11-29] MEDS ORDERED: fentaNYL CITRATE 250 MCG/5 ML VIAL ONE ×2 (10:35)
[2018-11-29] MEDS ORDERED: PROPOFOL 20 ML ONE ×4 (10:35)
[2018-11-29] MEDS ORDERED: MIDAZOLAM HCL 2 MG/2 ML SINGLE DOSE VIAL ONE ×2 (10:35)
[2018-11-29] MEDS ORDERED: SUCCINYLCHOLINE CHLORIDE 200 MG/10 ML SYRINGE ONE (10:38)
[2018-11-29] MEDS ORDERED: ROCURONIUM BROMIDE 50 MG/5 ML SYRINGE ONE ×3 (10:38→13:26)
[2018-11-29] MEDS ORDERED: ceFAZolin SODIUM 1 GM VIAL IVPB ONE (11:00)
[2018-11-29] MEDS ORDERED: VANCOMYCIN 1,000 MG VIAL (RESTRICTED TO ID ONLY) ONE (11:00)
[2018-11-29] MEDS ORDERED: ceFAZolin SODIUM 1 GM VIAL ONE ×2 (11:00→17:35)
[2018-11-29] MEDS ORDERED: VANCOMYCIN 1,000 MG VIAL (RESTRICTED TO ID ONLY) IVPB ONE (11:10)
[2018-11-29] MEDS ORDERED: LIDOCAINE 1%/EPI 1:100000 (50 ML MULTI DOSE VIAL) INF ONE (11:12)
[2018-11-29] MEDS ORDERED: EPHEDRINE SULFATE/0.9% NACL/PF 50 MG/10 ML SYRINGE NR ONE (11:17)
[2018-11-29] MEDS: NAPROXEN 500 MG TABLET (FP) PO SCH ×2 (12:04→22:27)
[2018-11-29] MEDS: PARoxetine HCL 10 MG TABLET PO SCH (12:04)
[2018-11-29] MEDS ORDERED: PROMETHAZINE HCL 25 MG/1 ML VIAL IVPUSH PRN (12:16)
[2018-11-29] MEDS ORDERED: ONDANSETRON 4 MG/2 ML VIAL IVPUSH PRN (12:16)
[2018-11-29] MEDS ORDERED: ONDANSETRON 4 MG/2 ML VIAL ONE (12:18)
[2018-11-29] MEDS ORDERED: DEXAMETHASONE SOD PHOSPHATE 4 MG/1 ML VIAL ONE (12:18)
--- NOTE | 2018-11-29 13:35 | PN ---
Progress Note, Physician - Current Medication List Current Medications: Active Medications Amlodipine Besylate (Norvasc -) 5 mg PO DAILY [facility] Last Admin: 11/29/18 09:31 Dose: 5 mg Dexamethasone Sodium Phosphate (Decadron Injection -) 4 mg IVPUSH Q6H-IV [facility] Last Admin: 11/29/18 12:04 Dose: Not Given Diphenhydramine HCl (Benadryl Injection -) 12.5 mg IVPUSH ONCE PRN PRN Reason: FOR ITCHING Fentanyl (Sublimaze Injection -) 50 mcg IVPUSH [id number] PRN PRN Reason: PAIN-PACU ORDER X 4 DOSES ONLY Stop: 11/30/18 02:00 Hydromorphone HCl (Hydromorphone 10 Mg/50 Ml-Ns) 0.2 mg SUPERVISOR FISH BAIT PROCESSING SUPERVISOR FISH BAIT PROCESSING [facility]; Protocol Stop: 12/06/18 12:21 Lactated Ringer's (Lactated Ringers Solution) 1,000 mls @ 125 mls/hr IV ASDIR [facility] Naproxen (Naprosyn -) 500 mg PO BID [facility] Last Admin: 11/29/18 12:04 Dose: Not Given Ondansetron HCl (Zofran Injection) 4 mg IVPUSH Q6H PRN PRN Reason: NAUSEA AND/OR VOMITING Paroxetine HCl (Paxil -) 10 mg PO DAILY [facility] Last Admin: 11/29/18 12:04 Dose: Not Given Promethazine HCl (Phenergan Injection -) 12.5 mg IVPUSH Q6H PRN PRN Reason: NAUSEA-FOR RESCUE AFTER 15 MIN - Objective Vital Signs: Vital Signs Temperature 98.5 F 11/29/18 06:23 Pulse Rate 97 H 11/29/18 06:23 Respiratory Rate 18 11/29/18 06:23 Blood Pressure 130/66 11/29/18 06:23 O2 Sat by Pulse Oximetry (%) 98 11/28/18 20:18 Labs: CBC, BMP 11/27/18 14:05 11/27/18 14:05 Assessment/Plan pt in or nowq will see l;ater vss
[2018-11-29] MEDS ORDERED: BUPIVACAINE HCL/PF 0.25% (2.5MG/ML) 10 ML VIAL ONE (13:45)
[2018-11-29] MEDS ORDERED: BUPIVACAINE LIPOSOME/PF (EXPAREL) 266 MG/20 ML VIAL ONE (13:45)
[2018-11-29] MEDS ORDERED: NEOSTIGMINE METHYLSULFATE 0.5 MG/1 ML - 10 ML MDV ONE (14:30)
[2018-11-29] MEDS ORDERED: GLYCOPYRROLATE 0.2 MG/1 ML VIAL ONE (14:30)
[2018-11-29] MEDS ORDERED: HYDROmorphone *PCA* 10MG/50ML DISP.SYRIN ONE (15:29)
[2018-11-29] MEDS ORDERED: ALPRAZolam 0.25 MG TABLET PO PRN (15:30)
[2018-11-29] MEDS ORDERED: diphenhydrAMINE HCL 25 MG CAPSULE (FP) PO PRN (15:32)
[2018-11-29] MEDS: HYDROmorphone *PCA* 10MG/50ML DISP.SYRIN PCA SCH (15:40)
--- NOTE | 2018-11-29 15:41 | OP ---
Operative Note - Note: Operative Date: 11/29/18 Pre-Operative Diagnosis: Cervical spondy with radiculopathy, myelopathy Operation: C2-7 Laminectomies with C2-5 osteotomies and correction of deformity with C2-C7 lateral mass/pars instrumentation and fusion Post-Operative Diagnosis: Same as Pre-op (As well as acute C34, C56 & C67 instability/facet capsule disuption) Surgeon: Carlos Alberto Mccray Scraper Burrer: Giuseppe Parrish Anesthesiologist/CROP SPECIALIST: Jemima Valentin Anesthesia: General Estimated Blood Loss (mls): 600 Drains & Tubes with Location: CAROLYNE posterior cervical Drains, Volume Out (mls): 50 (Johnson ) Fluid Volume Replaced (mls): 2,700 (LR) Operative Report Dictated: Yes
[2018-11-29] MEDS: LACTATED RINGERS SOLUTION 1,000 ML/1,000 ML INFUS.BAG IV SCH (15:50)
[2018-11-29] MEDS ORDERED: CEFAZOLIN 1 GM/D5W 1 GM/50 ML BAG IVPB SCH (18:00)
[2018-11-29] MEDS: HEPARIN NA (PORCINE) 5,000 UNITS/ML 1ML VIAL SQ SCH ×2 (19:07→22:05)
[2018-11-29] MEDS ORDERED: PT OWN MED DRAWER 7, Y5N ONE (21:15)
[2018-11-29] MEDS: ROSUVASTATIN CA 20 MG TABLET (FP) PO SCH (22:29)
[2018-11-29] MEDS: DOCUSATE SODIUM 100 MG CAPSULE (FP) PO SCH (22:30)
[2018-11-30] MEDS ORDERED: DEXTROSE 5%-WATER - 50 ML IVPB ONE ×2 (01:48→09:10)
[2018-11-30] MEDS ORDERED: ceFAZolin SODIUM 1 GM VIAL ONE ×2 (01:48→09:10)
[2018-11-30] MEDS: LACTATED RINGERS SOLUTION 1,000 ML IV SCH ×2 (02:05→12:42)
[2018-11-30] MEDS: DEXAMETHASONE SOD PHOSPHATE 4 MG/1 ML VIAL IVPUSH SCH ×4 (02:05→22:05)
[2018-11-30] MEDS: CEFAZOLIN 1 GM in DEXTROSE 5%-WATER - 50 ML IVPB SCH ×2 (02:06→09:16)
[2018-11-30] MEDS: DOCUSATE SODIUM 100 MG CAPSULE (FP) PO SCH ×3 (06:19→22:04)
[2018-11-30] MEDS: HEPARIN NA (PORCINE) 5,000 UNITS/ML 1ML VIAL SQ SCH ×2 (08:21→15:56)
[2018-11-30 08:40] LABS: CALCIUM 8.6 mg/dL (8.5-10.1); CREATININE 0.9 mg/dL (0.55-1.3); POTASSIUM 4.6 mmol/L (3.5-5.1)
[2018-11-30 09:08] LABS: HEMATOCRIT 29.9 % (35.4-49); HEMOGLOBIN 10.3 GM/dL (11.7-16.9); MCH 31.2 pg (25.7-33.7); MCHC 34.3 g/dl (32.0-35.9); MEAN CELL VOLUME 90.9 fl (80-96); MEAN PLT VOLUME 9.7 fl (7.5-11.1); RBC 3.29 M/mm3 (4.00-5.60); RDW 12.7 % (11.9-15.9); WHITE BLOOD COUNT 13.4 K/mm3 (4.0-10.0)
[2018-11-30] MEDS ORDERED: PT OWN MED DRAWER 7, Y5N ONE ×3 (09:09→22:02)
[2018-11-30] MEDS: PARoxetine HCL 20 MG TABLET PO SCH (09:17)
[2018-11-30] MEDS: FOLIC ACID 1 MG TABLET (FP) PO SCH (09:17)
[2018-11-30] MEDS: amLODIPine BESYLATE 5 MG TABLET (FP) PO SCH (09:17)
[2018-11-30] MEDS: PARoxetine HCL 10 MG TABLET PO SCH (09:18)
[2018-11-30] MEDS: ASPIRIN 81 MG CHEWABLE TABLETS PO SCH (09:18)
[2018-11-30 09:48] LABS: PLATELET COUNT 158 K/MM3 (134-434)
[2018-11-30] MEDS ORDERED: amLODIPine BESYLATE 5 MG TABLET (FP) PO SCH (10:00)
[2018-11-30] MEDS: NAPROXEN 500 MG TABLET (FP) PO SCH ×2 (10:45→22:04)
--- NOTE | 2018-11-30 13:09 | PN ---
Progress Note, Physician Chief Complaint: coller intact comfotable - Current Medication List Current Medications: Active Medications Alprazolam (Xanax -) 0.25 mg PO PRN PRN PRN Reason: ANXIETY Amlodipine Besylate (Norvasc -) 5 mg PO DAILY [facility] Last Admin: 11/30/18 09:17 Dose: 5 mg Amlodipine Besylate (Norvasc -) 5 mg PO DAILY [facility] Last Admin: 11/30/18 12:47 Dose: Not Given Aspirin (Asa -) 81 mg PO DAILY [facility] Last Admin: 11/30/18 09:18 Dose: 81 mg Dexamethasone Sodium Phosphate (Decadron Injection -) 4 mg IVPUSH Q6H-IV [facility] Last Admin: 11/30/18 09:18 Dose: 4 mg Diphenhydramine HCl (Benadryl Injection -) 12.5 mg IVPUSH ONCE PRN PRN Reason: FOR ITCHING Diphenhydramine HCl (Benadryl -) 25 mg PO Q6H PRN PRN Reason: FOR ITCHING Docusate Sodium (Colace -) 100 mg PO TID [facility] Last Admin: 11/30/18 06:19 Dose: 100 mg Folic Acid (Folic Acid -) 1 mg PO DAILY [facility] Last Admin: 11/30/18 09:17 Dose: 1 mg Heparin Sodium (Porcine) (Heparin -) 5,000 unit SQ Q8H [facility] Last Admin: 11/30/18 08:21 Dose: 5,000 unit Hydromorphone HCl (Hydromorphone 10 Mg/50 Ml-Ns) 0.2 mg PARACHUTE CUSHION INSTALLER PARACHUTE CUSHION INSTALLER [facility]; Protocol Stop: 12/06/18 12:21 Last Admin: 11/29/18 15:40 Dose: 10 mg Lactated Ringer's (Lactated Ringers Solution) 1,000 mls @ 125 mls/hr IV ASDIR [facility] Last Admin: 11/30/18 12:42 Dose: 125 mls/hr Lactated Ringer's (Lactated Ringers Solution) 1,000 ml in 1,000 mls @ 125 mls/ hr IV ASDIR [facility] Last Admin: 11/29/18 15:50 Dose: 350 mls Cefazolin Sodium 1 gm/ (Dextrose) 50 mls @ 100 mls/hr IVPB Q8H-IV [facility] Last Admin: 11/30/18 09:16 Dose: 100 mls/hr Naproxen (Naprosyn -) 500 mg PO BID [facility] Last Admin: 11/30/18 10:45 Dose: 500 mg Non-Formulary Medication (Omeprazole Magnesium [Prilosec]) 10 mg PO DAILY [facility] Ondansetron HCl (Zofran Injection) 4 mg IVPUSH Q6H PRN PRN Reason: NAUSEA AND/OR VOMITING Paroxetine HCl (Paxil -) 10 mg PO DAILY [facility] Last Admin: 11/30/18 09:18 Dose: 10 mg Paroxetine HCl (Paxil -) 20 mg PO DAILY [facility] Last Admin: 11/30/18 09:17 Dose: 20 mg Promethazine HCl (Phenergan Injection -) 12.5 mg IVPUSH Q6H PRN PRN Reason: NAUSEA-FOR RESCUE AFTER 15 MIN Rosuvastatin Calcium (Crestor -) 20 mg PO [facility] Last Admin: 11/29/18 22:29 Dose: 20 mg - Objective Vital Signs: Vital Signs Temperature 98.1 F 11/30/18 10:00 Pulse Rate 66 11/30/18 10:00 Respiratory Rate 18 11/30/18 10:00 Blood Pressure 130/67 11/30/18 10:00 O2 Sat by Pulse Oximetry (%) 100 11/30/18 09:00 Constitutional: Yes: Well Nourished Eyes: Yes: WNL HENT: Yes: WNL Neck: Yes: Decreased ROM Cardiovascular: Yes: WNL Respiratory: Yes: WNL Gastrointestinal: Yes: WNL, Other ...Rectal Exam: Yes: Deferred, Other Genitourinary: Yes: WNL Breast(s): Yes: WNL Musculoskeletal: Yes: WNL Extremities: Yes: WNL Edema: No Peripheral Pulses WNL: Yes Integumentary: Yes: WNL Neurological: Yes: WNL ...Motor Strength: WNL Psychiatric: Yes: Other (depp anxiety) Labs: CBC, BMP 11/30/18 07:19 11/30/18 07:19 Assessment/Plan d/c sunday? as per kobe cbc in am
[2018-11-30] MEDS: LACTATED RINGERS SOLUTION 1,000 ML/1,000 ML INFUS.BAG IV SCH (17:03)
[2018-11-30] MEDS: ROSUVASTATIN CA 20 MG TABLET (FP) PO SCH (22:04)
[2018-12-01] MEDS: HEPARIN NA (PORCINE) 5,000 UNITS/ML 1ML VIAL SQ SCH ×4 (00:03→22:45)
[2018-12-01] MEDS: DOCUSATE SODIUM 100 MG CAPSULE (FP) PO SCH ×3 (05:10→22:40)
[2018-12-01] MEDS: DEXAMETHASONE SOD PHOSPHATE 4 MG/1 ML VIAL IVPUSH SCH ×4 (05:10→14:39)
[2018-12-01] MEDS: HYDROmorphone *PCA* 10MG/50ML DISP.SYRIN PCA SCH (07:14)
[2018-12-01 07:30] LABS: BASO % 0.1 % (0-2.0); HEMATOCRIT 31.3 % (35.4-49); HEMOGLOBIN 10.8 GM/dL (11.7-16.9); LYMPH % 13.1 % (8-40); MCH 31.2 pg (25.7-33.7); MCHC 34.4 g/dl (32.0-35.9); MEAN CELL VOLUME 90.7 fl (80-96); MEAN PLT VOLUME 9.8 fl (7.5-11.1); MONO % 8.9 % (3.8-10.2); NEUT % 77.9 % (42.8-82.8); PLATELET COUNT 168 K/MM3 (134-434); RBC 3.45 M/mm3 (4.00-5.60); RDW 12.6 % (11.9-15.9); WHITE BLOOD COUNT 12.5 K/mm3 (4.0-10.0)
--- NOTE | 2018-12-01 07:38 | PN ---
Progress Note, Physician Chief Complaint: s/p cervical laminectomy under general anesthesia post op day two History of Present Illness: ems coordinator for post op pain control - Current Medication List Current Medications: Active Medications Alprazolam (Xanax -) 0.25 mg PO PRN PRN PRN Reason: ANXIETY Amlodipine Besylate (Norvasc -) 5 mg PO DAILY [facility] Last Admin: 11/30/18 09:17 Dose: 5 mg Aspirin (Asa -) 81 mg PO DAILY [facility] Last Admin: 11/30/18 09:18 Dose: 81 mg Dexamethasone Sodium Phosphate (Decadron Injection -) 4 mg IVPUSH Q6H-IV [facility] Last Admin: 12/01/18 07:15 Dose: Not Given Diphenhydramine HCl (Benadryl Injection -) 12.5 mg IVPUSH ONCE PRN PRN Reason: FOR ITCHING Docusate Sodium (Colace -) 100 mg PO TID [facility] Last Admin: 12/01/18 05:10 Dose: 100 mg Folic Acid (Folic Acid -) 1 mg PO DAILY [facility] Last Admin: 11/30/18 09:17 Dose: 1 mg Heparin Sodium (Porcine) (Heparin -) 5,000 unit SQ Q8H [facility] Last Admin: 12/01/18 00:03 Dose: 5,000 unit Lactated Ringer's (Lactated Ringers Solution) 1,000 ml in 1,000 mls @ 125 mls/ hr IV ASDIR [facility] Last Admin: 11/30/18 17:03 Dose: Not Given Naproxen (Naprosyn -) 500 mg PO BID [facility] Last Admin: 11/30/18 22:04 Dose: 500 mg Non-Formulary Medication (Omeprazole Magnesium [Prilosec]) 10 mg PO DAILY [facility] Ondansetron HCl (Zofran Injection) 4 mg IVPUSH Q6H PRN PRN Reason: NAUSEA AND/OR VOMITING Paroxetine HCl (Paxil -) 10 mg PO DAILY [facility] Last Admin: 11/30/18 09:18 Dose: 10 mg Paroxetine HCl (Paxil -) 20 mg PO DAILY [facility] Last Admin: 11/30/18 09:17 Dose: 20 mg Promethazine HCl (Phenergan Injection -) 12.5 mg IVPUSH Q6H PRN PRN Reason: NAUSEA-FOR RESCUE AFTER 15 MIN Rosuvastatin Calcium (Crestor -) 20 mg PO HS [facility] Last Admin: 11/30/18 22:04 Dose: 20 mg - Objective Vital Signs: Vital Signs Temperature 98.1 F 11/30/18 22:00 Pulse Rate 73 11/30/18 22:00 Respiratory Rate 18 11/30/18 22:00 Blood Pressure 162/92 11/30/18 22:00 O2 Sat by Pulse Oximetry (%) 98 11/30/18 21:00 Constitutional: Yes: Well Nourished Cardiovascular: Yes: WNL Respiratory: Yes: WNL Gastrointestinal: Yes: WNL Labs: CBC, BMP 12/01/18 06:30 11/30/18 07:19 Assessment/Plan No adverse anesthetic complications, pain controlled, TAX MANAGER PUBLIC stopped, dept of anesthesia will sign off care at this time.
[2018-12-01] MEDS: PARoxetine HCL 10 MG TABLET PO SCH (09:45)
[2018-12-01] MEDS ORDERED: PT OWN MED DRAWER 7, Y5N ONE ×2 (10:21→22:38)
[2018-12-01] MEDS: ASPIRIN 81 MG CHEWABLE TABLETS PO SCH (10:28)
[2018-12-01] MEDS: amLODIPine BESYLATE 5 MG TABLET (FP) PO SCH (10:28)
[2018-12-01] MEDS: PARoxetine HCL 20 MG TABLET PO SCH (10:28)
[2018-12-01] MEDS: FOLIC ACID 1 MG TABLET (FP) PO SCH (10:28)
[2018-12-01] MEDS: NAPROXEN 500 MG TABLET (FP) PO SCH ×2 (10:29→22:40)
[2018-12-01] MEDS ORDERED: ALPRAZolam 0.25 MG TABLET PO PRN (18:03)
[2018-12-01] MEDS: OMEPRAZOLE MAGNESIUM 10 MG PO SCH (18:33)
[2018-12-01] MEDS ORDERED: DEXAMETHASONE 4 MG TABLET (FP) PO SCH (22:00)
[2018-12-01] MEDS: ROSUVASTATIN CA 20 MG TABLET (FP) PO SCH (22:40)
[2018-12-02] MEDS: DOCUSATE SODIUM 100 MG CAPSULE (FP) PO SCH (05:35)
--- NOTE | 2018-12-02 08:36 | DS ---
Physical Examination Vital Signs: Vital Signs Temperature 98.2 F 12/02/18 07:48 Pulse Rate 73 12/02/18 07:48 Respiratory Rate 18 12/02/18 07:48 Blood Pressure 151/84 12/02/18 07:48 O2 Sat by Pulse Oximetry (%) 96 12/01/18 21:00 Constitutional: Yes: No Distress Eyes: Yes: WNL HENT: Yes: WNL Neck: Yes: WNL, Other (drain out as per neurosx) Cardiovascular: Yes: WNL Respiratory: Yes: WNL Gastrointestinal: Yes: WNL ...Rectal Exam: Yes: Deferred Renal/: Yes: WNL Breast(s): Yes: WNL Musculoskeletal: Yes: WNL Extremities: Yes: WNL Edema: No Peripheral Pulses WNL: No Integumentary: Yes: WNL Wound/Incision: Yes: Clean/Dry Neurological: Yes: WNL ...Motor Strength: WNL Psychiatric: Yes: WNL Labs: CBC, BMP 12/01/18 06:30 11/30/18 07:19 Discharge Summary Reason For Visit: NECK PAIN ON RIGHT SIDE Current Active Problems Neck pain on right side (Acute) Condition: Good - Instructions Diet, Activity, Other Instructions: Post Operative Instructions Physical Activity Resume your normal everyday activity as tolerated. No heavy lifting or exercise until seen by your surgeon. You may walk unlimited amounts and climb stairs. You may resume driving the car when you feel safe and comfortable behind the wheel and you are no longer wearing your brace. Do not operate a vehicle while taking narcotic medication. Brace You had neck surgery, wear surgical collar 23 hr/day. Remove to shower and or while eating meals only. Wound Care Keep your incision clean, dry and covered at all times. Apply an occlusive dressing (Saran wrap or Tegaderm) when showering to avoid getting your incision wet. Do not submerge incision or apply ointments or creams. Diet There are no dietary restrictions. Eat healthy, high-fiber foods. Drink 6-8 glasses of liquid each day. This will assist in keeping your bowels regular. Pain Management You may take Tylenol or acetaminophen. Any pain prescription medication ordered should be taken as prescribed for moderate to severe pain. Avoid any ibuprofen (Motrin, Advil, Aleve, Toradol, etc) for 3 months unless otherwise discussed with your surgeon. Call Dr Meier for any of the following: Severe pain not relieved by medication Fever of 101 or higher Excessive bleeding or drainage on dressing Inability to urinate Any chest pain or shortness of breath, seek Emergency Care. Call the office to confirm a post-operative appointment for 2-3 weeks post-op Carlos Alberto Mccray MD [facility] [address] [place] [address] Disposition: HOME - Home Medications Comprehensive Discharge Medication List: Ambulatory Orders Aspirin [ASA -] 81 mg PO Q48H 12/28/13 Amlodipine Besylate [Norvasc -] 5 mg PO DAILY 06/23/15 Paroxetine HCl [Paxil] 20 mg PO DAILY 07/14/15 Alprazolam [Xanax] 0.25 mg PO DAILY PRN 11/27/18 Omeprazole Magnesium [Prilosec Otc] 20 mg PO DAILY 12/01/18 Pravastatin Sodium 20 mg PO HS 12/01/18
[2018-12-02] MEDS: PARoxetine HCL 20 MG TABLET PO SCH (09:47)
[2018-12-02] MEDS: amLODIPine BESYLATE 5 MG TABLET (FP) PO SCH (09:47)
[2018-12-02] MEDS: ASPIRIN 81 MG CHEWABLE TABLETS PO SCH (09:47)
--- NOTE | 2018-12-02 09:59 | PN ---
Progress Note (short form) - Note Progress Note: Neurosurgery POD #3 C2-7 Laminectomies with C2-5 osteotomies and correction of deformity with C2-C7 lateral mass/pars instrumentation and fusion. Patient seen and examined at the bedside with no complaints. Patient stated his pain is controlled. He has been ambulating without assistance and tolerating his diet. He denies and radicular symptoms in b/l U/E, chest pain, SOB, N/V, Fever or chills. Vital Signs Temp 98.2 F 12/02/18 07:48 Pulse 73 12/02/18 07:48 Resp 18 12/02/18 07:48 BP 151/84 12/02/18 07:48 Pulse Ox 96 12/01/18 21:00 Intake & Output 12/01/18 12/01/18 12/02/18 11:59 23:59 11:59 Intake Total 0 0 Output Total 450 120 45 Balance -450 -120 -45 Intake: IV 0 0 SL 0 0 IVPB 0 Output: Drainage 50 120 45 Neck 50 120 45 Urine 400 Void 400 Other: Voiding Method Toilet Toilet # Unmeasured Voids Void 1 2 Bowel Movement Yes No # Bowel Movements 1 PE: A&Ox3, NAD Unlabored resp on RA neck: Incision c/d/i with surrounding tissue intact and no evidence of erythema , edema, collection or d/c. j/p drain removed with tip fully intact. drain site clean and dry-dermabond applied to both. 5/5 strength b/l US deltoids, bicepts/tricepts, and resisted wrist extension. Sensation to light touch grossly intact throughout. B/L LE compartment soft, supple and non-tender with +2 DP pulses. Problem List - Problems (1) S/P cervical spinal fusion Assessment/Plan: POD #3 doing well. Drain removed with SS d/c. Per protocol, patient will not receive oral steroids or NSAIDs upon admission as this could interfere with healing. 1) d/c home today - d/c plan discussed with patient 2) OOB as tolerated 3) c-collar //day 4) no pillow under head 5) f/u with PCP and Dr Mccray as scheduled. Evaluation and plan discussed with Dr Mccray Code(s): Z98.1 - ARTHRODESIS STATUS
[2018-12-02] MEDS ORDERED: PANTOPRAZOLE 20 MG TABLET (FP) PO SCH (10:00)
[2018-12-02 12:11] VITALS: BP 139/73; PULSE 80; TEMP 98
--- NOTE | 2018-12-09 07:48 | SURG ---
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 Cranial tong application 2. Fluroscopy 3. Local autograft 4. Posterior Segmental Instrumentation C2-7 (technically challenging) 5. C2 Laminectomy 6. C3 Laminectomy 7. C4 Laminectomy 8. C5 Laminectomy 9. C6 Laminectomy 10. C7 Laminectomy 11. Microdissection 12. Repair of durotomy 13. C2 Posterior Osteotomy 14. C3 Posterior Osteotomy 15. C4 Posterior Osteotomy 16. C2/3 Posterior Arthrodesis 17. C3/4 Posterior Arthrodesis 18. C4/5 Posterior Arthrodesis 19. C5/6 Posterior Arthrodesis 20. C6/7 Posterior Arthrodesis 21. Bilateral soft tissue advancement flaps (50 cm2) 22. [facility] I was present for the entirety of the operative procedure. For further detail, please refer to operative report. Visit type - Case Type Case Type: Scheduled - New patient This patient is new to me today: Yes Date on this admission: 11/29/18
== END 2018-12-02 12:50 | disposition home or self-care (01) | DRG 454 ==
LOC: JER 12:20 → JERBED 22:13 → J7W 11-28 04:12 → JSAMEDAYSX 11-29 14:56 → J8W 11-29 18:37
PROVIDERS: ADMIT Family Medicine; ATTEND Family Medicine
PROC: 0RG2071 Fusion of 2 or more Cervical Vertebral Joints with Autologous Tissue Substitute, Posterior Approach, Posterior Column, Open Approach (ICD-10-PCS; 2018-11-29)
PROC: 0HX6XZZ Transfer Back Skin, External Approach (ICD-10-PCS; 2018-11-29)
PROC: 00U20KZ Supplement Dura Mater with Nonautologous Tissue Substitute, Open Approach (ICD-10-PCS; 2018-11-29)
PROC: 01N10ZZ Release Cervical Nerve, Open Approach (ICD-10-PCS; 2018-11-29)
PROC: B01BZZZ Fluoroscopy of Spinal Cord (ICD-10-PCS; 2018-11-29)
PROC: 0RG20AJ Fusion of 2 or more Cervical Vertebral Joints with Interbody Fusion Device, Posterior Approach, Anterior Column, Open Approach (ICD-10-PCS; principal; 2018-11-29 10:00)
DX: M47.22 Other spondylosis with radiculopathy, cervical region (principal); G96.11 Dural tear; M47.12 Other spondylosis with myelopathy, cervical region; F41.8 Other specified anxiety disorders; F17.210 Nicotine dependence, cigarettes, uncomplicated; Z86.73 Personal history of transient ischemic attack (TIA), and cerebral infarction without residual deficits
CPT/HCPCS: 36415; 70450-TC; 71046-TC-FY; 72125-TC; 72141-TC; 76000-TC-FY; 80048; 80053; 84484; 85025; 85027; 86922; 93005; 93010; 94760; 97116-GP; 99285-25; J1644

== ENCOUNTER 2018-12-03 09:08 | Emergency (ER) | payer BC ==
--- NOTE | 2018-12-03 09:37 | PDOC ---
History of Present Illness - General Stated Complaint: NECK PAIN Time Seen by Provider: 12/03/18 09:12 - History of Present Illness Initial Comments: Tremaine Cabrera is a 53yo man POD #4 s/p C2-7 Laminectomies with C2-5 osteotomies and correction of deformity with C2-C7 lateral mass/pars instrumentation and fusion, discharge yesterday, who presents with neck pain. He says that he felt great when he left the hospital yesterday, but he was unable to bead picker his pain medication because he was not able to drive and his son was at work. He started having significant pain overnight. He took acetaminophen once around midnight but did not feel it helped. He states that he was unable to lay down and could not walk around by early this morning. His son was able to bead picker his pain medication before work this morning, but was concerned about the pain and a sensation of pressure at the base of his neck. Mr Cabrera denies any focal numbness, weakness, or tingling in his extremities, and denies any other focal neurological deficits. He was having no difficulty gett up and walking around prior to his discharge yesterday. He was given 5mg IV morphine by EMS with some improvement in his symptoms. Past History - Past Medical History Allergies/Adverse Reactions: Allergies Allergy/AdvReac Type Severity Reaction Status Date / Time enedelia flavor Allergy Intermediate Hives Verified 12/03/18 09:46 Iodinated Contrast- Oral and Allergy Verified 12/03/18 09:46 IV Dye [Iodinated Contrast Media - IV Dye] iodine Allergy Hives Verified 12/03/18 09:47 Home Medications: Ambulatory Orders Aspirin [ASA -] 81 mg PO Q48H 12/28/13 Amlodipine Besylate [Norvasc -] 5 mg PO DAILY 06/23/15 Paroxetine HCl [Paxil] 20 mg PO DAILY 07/14/15 Alprazolam [Xanax] 0.25 mg PO DAILY PRN 11/27/18 Omeprazole Magnesium [Prilosec Otc] 20 mg PO DAILY 12/01/18 Pravastatin Sodium 20 mg PO HS 12/01/18 Oxycodone HCl/Acetaminophen [Percocet 5-325 mg Tablet] 1 - 2 tab PO Q4H PRN #20 tab MDD 6 12/02/18 Anemia: No Asthma: No Cancer: No Cardiac Disorders: Yes (Valve spasm) CVA: Yes (x 2: 2012) COPD: No CHF: No Dementia: No Diabetes: No GI Disorders: Yes (Heart burn, Cholecystectomy) Disorders: No HTN: Yes Hypercholesterolemia: Yes Kidney Stones: Yes (H/O) Liver Disease: No Psychiatric Problems: Yes (ANXIETY, PANIC ATTACKS) Seizures: No Thyroid Disease: No - Surgical History Abdominal Surgery: Yes Cardiac Surgery: Yes (cardiac catheterization) Cholecystectomy: Yes Lung Surgery: No Neurologic Surgery: No Orthopedic Surgery: No - Immunization History Immunization Up to Date: No - Suicide/Smoking/Psychosocial Hx Smoking Status: Yes Smoking History: Former smoker Have you smoked in the past 12 months: Yes Number of Cigarettes Smoked Daily: 12 If you are a former smoker, when did you quit?: 11 days ago Information on smoking cessation initiated: No 'Breaking Loose' booklet given: 03/30/17 Hx Alcohol Use: Yes Drug/Substance Use Hx: Yes Substance Use Type: None Hx Substance Use Treatment: No Review of Systems - Review of Systems Comments:: General: No fevers, no chills, no weight or appetite change, no malaise HEENT: No changes in vision, no changes in hearing, no congestion, no sore throat. See HPI CV: No chest pain, no palpitations, no LE edema Pulm: No SOB, no cough, no wheezing GI: No nausea or vomiting, no change in bowel habits, no melena : No frequency, no urgency, no dysuria Musc: No back pain, no joint swelling, no recent injury Skin: No rash, no lesions, no erythema Endo: No excessive thirst, no heat/cold intolerance Heme: No unusual bruising or bleeding, no swollen glands Neuro: No syncope, no numbness/tingling, no focal weakness Vasc: No claudication Psych: No recent change in mood, no SI or HI *Physical Exam - Vital Signs Last Vital Signs Temp Pulse Resp BP Pulse Ox 98.1 F 77 20 153/82 100 12/03/18 09:08 12/03/18 09:08 12/03/18 09:08 12/03/18 09:08 12/03/18 09:08 - Physical Exam Comments: General: Comfortable, no acute distress HEENT: PERRL, EOMI, MMM, voice normal. C-collar in place. Surgical dressing w/o any strikethrough. No erythema surrounding incision Cards: RRR, no murmur appreciated Pulm: Comfortable on room air, clear to auscultation bilaterally Abd: Soft, nontender, nondistended Ext: Atraumatic. No LE edema. ROM intact Vasc: Extremities WWP Skin: Normal color, no rashes or lesions Neuro: A&Ox3, CN grossly intact, normal speech, motor/sensory grossly intact and symmetric Psych: Mood appropriate to situation Medical Decision Making - Medical Decision Making 12/03/18 09:37 Tremaine Cabrera is a 53yo man POD #4 s/p C2-7 Laminectomies with C2-5 osteotomies and correction of deformity with C2-C7 lateral mass/pars instrumentation and fusion, discharge yesterday, who presents with neck pain. He says that he felt great when he left the hospital yesterday, but he was unable to bead picker his pain medication because he was not able to drive and his son was at work. He started having significant pain overnight. He took acetaminophen once around midnight but did not feel it helped. He states that he was unable to lay down and could not walk around by early this morning. His son was able to bead picker his pain medication before work this morning, but was concerned about the pain and a sensation of pressure at the base of his neck. Mr Cabrera denies any focal numbness, weakness, or tingling in his extremities, and denies any other focal neurological deficits. He was having no difficulty gett up and walking around prior to his discharge yesterday. He was given 5mg IV morphine by EMS with some improvement in his symptoms. - Benign exam w/o any neurological deficits appreciated. C-collar in place and surgical deressing clean - Most likely expected postoperative pain due to not taking any pain medication overnight - Call to Dr Mccray - Leann for pain 12/03/18 11:22 - Seen by Dr Mccray in the ED. Pt is OK to be discharged home, will follow up in his office - Pt spoke to his PMD, who would like him to come to his office later today - Still having some pain. Will give additional 2mg IV morphine. Plan to d/c once able to ambulate 12/03/18 12:57 - Pt still unable to ambulate. Was able to sit up in bed, but reported sensation of pressure over his lower neck and shoulders, requested to lay back down - Will give more time and attempt to get out of bed again 12/03/18 14:19 - Able to ambulate across room - Still reporting discomfort. Discussed expected post-operative discomforts w/ pt - Will give additional dose of pain meds and d/c home to follow up with PMD and neurosurg Discussed with Dr Sotelo. Ruby Mack PGY2 *DC/Admit/Observation/Transfer Diagnosis at time of Disposition: Postoperative pain - Discharge Dispostion Disposition: HOME Condition at time of disposition: Stable Decision to Admit order: No - Referrals Referrals: Jamison Echeverria MD [Primary Care Provider] - Carlos Alberto Mccray MD, FAANS [Staff Physician] - - Patient Instructions Printed Discharge Instructions: DI for Postoperative Pain Additional Instructions: Discharge Instructions: You were seen in the emergency department for pain in your neck following your recent surgery. Your pain improved with medications in the ED. Home Care and Follow Up: - You were prescribed Percocet pain medication when you were recently released from the hospital. You may take this medication as prescribed for pain. - If you have mild pain, consider using 650-1000mg acetaminophen (Tylenol) instead of the prescription medication. Do not take both as percocet already contains acetaminophen - Do not stop moving around. As much as you can tolerate, continue to do light exercise and stretching exercises. Increase your activity level as much as you can tolerate daily. - Please follow up with Dr Mccray as directed. You may call him or call Dr Echeverria if you have continued pain or questions about your recovery - Seek immediate medical care if you have significant worsening of your symptoms , you have fever to 102F, you have bleeding from your incision, you have any neurological deficits, or you have any other medical emergency. - Post Discharge Activity
[2018-12-03] MEDS ORDERED: ACETAMINOPHEN 1000 MG/100 ML VIAL (NON FORMULARY) IVPB ONE (09:38)
[2018-12-03 09:39] VITALS: BMI 30.1
--- NOTE | 2018-12-03 10:24 | PDOC ---
Documentation entered by Loreta Alejandro SCRIBE, acting as scribe for Geni Sotelo MD. Geni Sotelo MD: This documentation has been prepared by the johnny, Loreta Alejandro SCRIBE, under my direction and personally reviewed by me in its entirety. I confirm that the documentation accurately reflects all work, treatment, procedures, and medical decision making performed by me. Attending Attestation - Resident Resident Name: FlipRuby santiago - HPI HPI: 12/03/18 09:59 The patient is a 53 year old male with a significant past medical history of CVA, anxiety, and hypercholesterolemia who presents to the emergency department with severe neck pain s/p surgery yesterday. The patient states that he had a C2-[address] Mccray and was discharged home yesterday. He states that on discharge his pain meds were to be sent to his pharmacy but they did not get there yesterday. The patient states that he was experiencing severe neck pain secondary to this. The patient states that he has been able to sit up and stand on his feet. He denies any weakness, numbness or tingling sensations. He denies any fever, chills, nausea, vomiting, diarrhea, constipation or urinary symptoms. He denies any chest pain, shortness of breath , headache or dizziness. The patient denies any other complaints. - Physicial Exam PE: 12/03/18 09:59 GENERAL: Awake, alert, and fully oriented X3, in no acute distress HEAD: No signs of trauma NEUROLOGICAL: Cranial nerves II through XII grossly intact. Normal speech. Moving all extremities with good strength. SKIN: Warm, Dry, normal turgor, no rashes or lesions noted. 12/03/18 10:21 - Medical Decision Making 12/03/18 10:21 Pt presents to the ED complaining of increased pain after cervical laminectomy by Dr. Duvall on 11/29. Discharged home yesterday and unable to get his percoset. Denies new neurologic symptoms, fever, other worsening symptoms. Given morphine by EMS with some relief, but still unable to move or walk without severe pain. Will treat with percoset and reassess. 12/03/18 10:22
[2018-12-03] MEDS ORDERED: morphine CARPU-JECT 2 MG/1 ML DISP.SYRIN IVPUSH ONE (11:22)
[2018-12-03] MEDS ORDERED: MORPHINE SULFATE 2 MG/ML VIAL ONE (11:49)
[2018-12-03 18:23] VITALS: BP 157/89; PULSE 77; TEMP 98.8
== END 2018-12-03 19:00 | disposition home or self-care (01) ==
LOC: JER 09:08
PROC: 3E033NZ Introduction of Analgesics, Hypnotics, Sedatives into Peripheral Vein, Percutaneous Approach (ICD-10-PCS; principal; 2018-12-03)
DX: G89.18 Other acute postprocedural pain (principal); I10 Essential (primary) hypertension; E78.00 Pure hypercholesterolemia, unspecified; F41.9 Anxiety disorder, unspecified; Z86.73 Personal history of transient ischemic attack (TIA), and cerebral infarction without residual deficits; Z87.891 Personal history of nicotine dependence
CPT/HCPCS: 99283-25

== ENCOUNTER 2018-12-16 10:08 | Emergency (ER) | payer BC ==
[2018-12-16 10:32] VITALS: BP 138/92; PULSE 84; TEMP 98; BMI 66.4
--- NOTE | 2018-12-16 10:56 | PDOC ---
History of Present Illness - General Chief Complaint: Psychiatric Stated Complaint: ANXIETY Time Seen by Provider: 12/16/18 10:56 History Source: Patient Exam Limitations: No Limitations - History of Present Illness Initial Comments: 12/16/18 10:57 53yo man Past History - Past Medical History Allergies/Adverse Reactions: Allergies Allergy/AdvReac Type Severity Reaction Status Date / Time enedelia flavor Allergy Intermediate Hives Verified 12/16/18 10:29 Iodinated Contrast- Oral and Allergy Verified 12/16/18 10:29 IV Dye [Iodinated Contrast Media - IV Dye] iodine Allergy Hives Verified 12/16/18 10:29 Home Medications: Ambulatory Orders Aspirin [ASA -] 81 mg PO Q48H 12/28/13 Amlodipine Besylate [Norvasc -] 5 mg PO DAILY 06/23/15 Paroxetine HCl [Paxil] 20 mg PO DAILY 07/14/15 Alprazolam [Xanax] 0.25 mg PO DAILY PRN 11/27/18 Omeprazole Magnesium [Prilosec Otc] 20 mg PO DAILY 12/01/18 Pravastatin Sodium 20 mg PO HS 12/01/18 Oxycodone HCl/Acetaminophen [Percocet 5-325 mg Tablet] 1 - 2 tab PO Q4H PRN #20 tab MDD 6 12/02/18 Anemia: No Asthma: No Cancer: No Cardiac Disorders: Yes (Valve spasm) CVA: Yes (x 2: 2011) COPD: No CHF: No Dementia: No Diabetes: No GI Disorders: Yes (Heart burn, Cholecystectomy) Disorders: No HTN: Yes Hypercholesterolemia: Yes Kidney Stones: Yes (H/O) Liver Disease: No Psychiatric Problems: Yes (ANXIETY, PANIC ATTACKS) Seizures: No Thyroid Disease: No - Surgical History Abdominal Surgery: Yes Cardiac Surgery: Yes (cardiac catheterization) Cholecystectomy: Yes Lung Surgery: No Neurologic Surgery: No Orthopedic Surgery: No - Immunization History Immunization Up to Date: No - Suicide/Smoking/Psychosocial Hx Smoking Status: Yes Smoking History: Current every day smoker Have you smoked in the past 12 months: Yes Number of Cigarettes Smoked Daily: 12 If you are a former smoker, when did you quit?: 11 days ago Information on smoking cessation initiated: No 'Breaking Loose' booklet given: 03/30/17 Hx Alcohol Use: No Drug/Substance Use Hx: No Substance Use Type: None Hx Substance Use Treatment: No *Physical Exam - Vital Signs Last Vital Signs Temp Pulse Resp BP Pulse Ox 98.0 F 84 18 138/92 100 12/16/18 10:29 12/16/18 10:29 12/16/18 10:29 12/16/18 10:29 12/16/18 10:29 Medical Decision Making - Medical Decision Making 12/16/18 10:56 53yo man *DC/Admit/Observation/Transfer - Referrals Referrals: Jamison Echeverria MD [Primary Care Provider] - - Patient Instructions - Post Discharge Activity
[2018-12-16 12:12] LABS: BASO % 1.3 % (0-2.0); EOS % 3.6 % (0-4.5); HEMOGLOBIN 11.5 GM/dL (11.7-16.9); LYMPH % 16.4 % (8-40); MCH 31.3 pg (25.7-33.7); MEAN CELL VOLUME 89.6 fl (80-96); MEAN PLT VOLUME 7.7 fl (7.5-11.1); MONO % 5.9 % (3.8-10.2); NEUT % 72.8 % (42.8-82.8); RBC 3.68 M/mm3 (4.00-5.60); RDW 12.9 % (11.9-15.9); WHITE BLOOD COUNT 7.3 K/mm3 (4.0-10.0)
[2018-12-16 12:49] LABS: ALBUMIN 3.7 g/dl (3.4-5.0); ALK PHOS 93 U/L (45-117); ANION GAP 7 MMOL/L (8-16); BILIRUBIN,TOTAL 0.4 mg/dL (0.2-1); BLOOD UREA NITROGEN 14.2 mg/dL (7-18); CALCIUM 9.2 mg/dL (8.5-10.1); CHLORIDE 102 mmol/L (98-107); CO2 27 mmol/L (21-32); CREATININE 0.8 mg/dL (0.55-1.3); GLUCOSE,RANDOM 94 mg/dL (74-106); POTASSIUM 4.6 mmol/L (3.5-5.1); SGOT/AST 15 U/L (15-37); SGPT/ALT 42 U/L (13-61); SODIUM 136 mmol/L (136-145); TOT PROT 7.2 g/dl (6.4-8.2)
[2018-12-16 12:57] LABS: PLATELET COUNT 316 K/MM3 (134-434)
--- NOTE | 2018-12-16 12:57 | PDOC ---
Documentation entered by Lalitha Patel SCRIBE, acting as scribe for Wai Cleary MD. Wai Cleary MD: This documentation has been prepared by the Amanda turner Xhesika, SCRIBE, under my direction and personally reviewed by me in its entirety. I confirm that the documentation accurately reflects all work, treatment, procedures, and medical decision making performed by me. Attending Attestation - Resident Resident Name: Rodrigo Gregoryjenifferjamin - ED Attending Attestation I have performed the following: I have examined & evaluated the patient, The case was reviewed & discussed with the resident, I agree w/resident's findings & plan - HPI HPI: 12/16/18 12:54 53-year-old male with history of anxiety/panic attacks presents with episode of lightheadedness upon standing this morning. Patient in his usual state of health , 3 weeks status post cervical spine fusion procedure with hard collar in place , recovering well, awoke this morning and still felt tired, laid back down and upon awakening to use the restroom, stood up and felt about 1 minute of lightheadedness. Wash his face and felt better, no associated headache/vision change/speech change/neck pain/chest pain/palpitations/nausea/vomiting/focal deficit. No leg swelling or unilateral pain, no recent fevers or chills, normal diet. Patient has had identical symptoms in the past secondary to his panic attacks, in the setting he prompted his daughters activate 911, he currently feels well and asymptomatic, has been ambulating in the emergency Department comfortably without lightheadedness. - Physicial Exam PE: 12/16/18 12:55 Vital signs normal Well-appearing, conversant, seated comfortably in Anthony C-collar in place postoperatively Heart is regular without murmurs, lungs are clear Abdomen benign Neurologically intact - Medical Decision Making 12/16/18 12:55 53-year-old male 3 weeks postop cervical spine fusion presents with transient episode of lightheadedness with standing, resolved spontaneously. Hemodynamically stable here without red flags on history or physical exam, ambulating comfortably. Presentation seems most consistent with orthostatic episode, vital signs normal here. EKG shows old right bundle without evidence of acute ischemia Labs sent Tolerating oral fluids and food Discharge with labs are within normal limits, understands return criteria. Scheduled for f/u with his surgeon later this week. Heart Score/ECG Review #1 ECG reviewed & interpreted by me at: 11:18 General ECG Interpretation: Sinus Rhythm, Normal Rate (75), Normal Intervals ( qtc 462, RBBB qrs 152), No acute ischemic changes
--- NOTE | 2018-12-16 12:58 | PDOC ---
History of Present Illness - General Chief Complaint: Psychiatric Stated Complaint: ANXIETY Time Seen by Provider: 12/16/18 10:56 - History of Present Illness Initial Comments: 53 year old male with PMH of very frequent anxiety/ panic attacks and 3 weeks s /p posterior cervical spine fusion presenting with lightheadedness and anxiety that resolved briefly after the symptoms started this morning upon waking up. States that he woke up and got out of bed then noticed this lightheadedness and anxiety. He layed back down and felt better. Denies any syncope, palpitations, fevers, chills, nausea, vomiting, chest pain, other symptoms. Grace was asymptomatic by presentation to our ED. Past History - Past Medical History Allergies/Adverse Reactions: Allergies Allergy/AdvReac Type Severity Reaction Status Date / Time enedelia flavor Allergy Intermediate Hives Verified 12/16/18 10:29 Iodinated Contrast Media Allergy Verified 12/16/18 10:29 [Iodinated Contrast Media - IV Dye] iodine Allergy Hives Verified 12/16/18 10:29 Home Medications: Ambulatory Orders Aspirin [ASA -] 81 mg PO Q48H 12/28/13 Amlodipine Besylate [Norvasc -] 5 mg PO DAILY 06/23/15 Paroxetine HCl [Paxil] 20 mg PO DAILY 07/14/15 Alprazolam [Xanax] 0.25 mg PO DAILY PRN 11/27/18 Omeprazole Magnesium [Prilosec Otc] 20 mg PO DAILY 12/01/18 Pravastatin Sodium 20 mg PO HS 12/01/18 Oxycodone HCl/Acetaminophen [Percocet 5-325 mg Tablet] 1 - 2 tab PO Q4H PRN #20 tab MDD 6 12/02/18 Anemia: No Asthma: No Cancer: No Cardiac Disorders: Yes (Valve spasm) CVA: Yes (x 2: 2011) COPD: No CHF: No Dementia: No Diabetes: No GI Disorders: Yes (Heart burn, Cholecystectomy) Disorders: No HTN: Yes Hypercholesterolemia: Yes Kidney Stones: Yes (H/O) Liver Disease: No Psychiatric Problems: Yes (ANXIETY, PANIC ATTACKS) Seizures: No Thyroid Disease: No - Surgical History Abdominal Surgery: Yes Cardiac Surgery: Yes (cardiac catheterization) Cholecystectomy: Yes Lung Surgery: No Neurologic Surgery: No Orthopedic Surgery: No - Immunization History Immunization Up to Date: No - Suicide/Smoking/Psychosocial Hx Smoking Status: Yes Smoking History: Current every day smoker Have you smoked in the past 12 months: Yes Number of Cigarettes Smoked Daily: 12 If you are a former smoker, when did you quit?: 11 days ago Information on smoking cessation initiated: No 'Breaking Loose' booklet given: 03/30/17 Hx Alcohol Use: No Drug/Substance Use Hx: No Substance Use Type: None Hx Substance Use Treatment: No Review of Systems - Review of Systems Constitutional: No: Chills, Diaphoresis, Fever HEENTM: No: Blurred Vision, Recent change in vision Respiratory: No: Cough, Orthopnea, Shortness of Breath Cardiac (ROS): No: Chest Pain, Edema ABD/GI: No: Diarrhea, Nausea, Vomiting : No: Dysuria, Discharge, Frequency Neurological: Yes: Weakness. No: Headache, Numbness Psychiatric: Yes: Anxiety *Physical Exam - Vital Signs Last Vital Signs Temp Pulse Resp BP Pulse Ox 98.0 F 84 18 138/92 100 12/16/18 10:29 12/16/18 10:29 12/16/18 10:29 12/16/18 10:29 12/16/18 10:29 - Physical Exam General Appearance: Yes: Nourished, Appropriately Dressed. No: Apparent Distress HEENT: positive: EOMI, ALFREOD, Normal ENT Inspection, Normal Voice Neck: positive: Trachea midline, Normal Thyroid, Supple. negative: Tender, Rigid Respiratory/Chest: positive: Lungs Clear, Normal Breath Sounds. negative: Chest Tender, Respiratory Distress, Accessory Muscle Use Cardiovascular: positive: Regular Rhythm, Regular Rate Gastrointestinal/Abdominal: positive: Normal Bowel Sounds, Flat, Soft. negative : Tender Lymphatic: negative: Adenopathy, Tenderness Musculoskeletal: positive: Normal Inspection Extremity: positive: Normal Capillary Refill, Normal Inspection, Normal Range of Motion. negative: Tender Integumentary: positive: Normal Color, Dry, Warm Neurologic: positive: Fully Oriented, Alert, Normal Mood/Affect, Normal Response , Motor Strength / ED Treatment Course - LABORATORY CBC & Chemistry Diagram: 12/16/18 11:27 12/16/18 11:14 - ADDITIONAL ORDERS Additional order review: Laboratory Results 12/16/18 11:14 Sodium 136 Potassium 4.6 Chloride 102 Carbon Dioxide 27 Anion Gap 7 L BUN 14.2 Creatinine 0.8 Est GFR (CKD-EPI)AfAm 116.56 Est GFR (CKD-EPI)NonAf 100.57 Random Glucose 94 Calcium 9.2 Total Bilirubin 0.4 AST 15 ALT 42 Alkaline Phosphatase 93 Creatine Kinase 81 Troponin I < 0.02 Total Protein 7.2 Albumin 3.7 Medical Decision Making - Medical Decision Making 53 year old male with history of anxiety and episodes of lightheadedness with one episode of lightheadedness when getting up this morning. Symptoms quickly resolved when he layed back down and he has been asymptomatic since. Admits that this episode feels identical to his highly frequent panic/ anxiety attacks prior to his cervical spine procedure but he was concerned today because he wanted to ensure that it wasn't related to his cervical spine procedure. PE was WNL with a well healing cervical spine posterior surgical site. EKG demonstrating rate 75, MD 194, QRS 152, QTc 462, normal axis with overall pattern concerning for RBBB posterior inferior infarct which is nearly identical to November 27, 2018 EKG. VSS. No signs of DVT or PE. Will DC with return precautions and follow up instructions as patient feels better. 12/16/18 12:54 *DC/Admit/Observation/Transfer Diagnosis at time of Disposition: Anxiety, Lightheadedness - Discharge Dispostion Disposition: HOME Condition at time of disposition: Improved Decision to Admit order: No - Referrals Referrals: Jamison Echeverria MD [Primary Care Provider] - - Patient Instructions Printed Discharge Instructions: DI for Dizziness-Nonvertigo Additional Instructions: Please drink plenty of water and be cautious when standing up. Please see your PCP within the next two weeks. Please return to the ED if you have new or worsening symptoms. - Post Discharge Activity
--- NOTE | 2018-12-16 15:24 | EKG ---
Test Reason : Blood Pressure : / mmHG Vent. Rate : 075 BPM Atrial Rate : 075 BPM P-R Int : 194 ms QRS Dur : 152 ms QT Int : 414 ms P-R-T Axes : 032 030 036 degrees QTc Int : 462 ms NORMAL SINUS RHYTHM RIGHT BUNDLE BRANCH BLOCK POSSIBLE INFERIOR INFARCT (CITED ON OR BEFORE 23-JUN-2015) ABNORMAL ECG WHEN COMPARED WITH ECG OF 27-NOV-2018 13:09, NO SIGNIFICANT CHANGE WAS FOUND Confirmed by JAYDE SAGE, BLACK ([id number]) on 12/16/2018 3:24:15 PM Referred By: Confirmed By:BLACK DONOHUE MD
== END 2018-12-16 13:29 | disposition home or self-care (01) ==
LOC: JER 10:08
DX: R42 Dizziness and giddiness (principal); I25.10 Atherosclerotic heart disease of native coronary artery without angina pectoris; I10 Essential (primary) hypertension; Z98.61 Coronary angioplasty status; R12 Heartburn; F41.9 Anxiety disorder, unspecified; E78.00 Pure hypercholesterolemia, unspecified; I73.89 Other specified peripheral vascular diseases; F17.210 Nicotine dependence, cigarettes, uncomplicated; Z87.440 Personal history of urinary (tract) infections; Z98.1 Arthrodesis status
CPT/HCPCS: 36415; 80053; 82550; 84484; 85025; 93005; 93010; 99283-25

== ENCOUNTER 2020-01-05 11:06 | Emergency (ER) | payer BC ==
[2020-01-05 11:11] VITALS: BMI 32.1
[2020-01-05] MEDS ORDERED: SODIUM CHLORIDE 1,000 ML IV STA (11:58)
--- NOTE | 2020-01-05 12:03 | PDOC ---
History of Present Illness - General Chief Complaint: Pain Stated Complaint: ABD/BACK PAIN Time Seen by Provider: 01/05/20 11:54 History Source: Patient Exam Limitations: No Limitations - History of Present Illness Initial Comments: 01/05/20 12:04 54 yo M pmh anxiety / panic attacks, cervical spinal fusion, kidney stone with ?percutnaeous retrieval, chronic R lower back pain, R-sided sciatica, cholecystitis s/p cholecystectomy presenting with 3 days of right flank, lower abdominal pain with associated "right testicular discomfort." Patient reports pain appeared gradually on Sunday, has been constant vs mildly worsening over the weekend, has difficulty describing it, but not tearing / burning or stabbing, just "pain" and "discomfort." Took Tylenol at home with minimal re lief. No dysuria, frequency, foul odors, or gross hematuria. Denies changes in bowel movements, no bloody or dark stools. Smokes 1/2ppd, denies trauma, unexplained weight loss, numbness / tingling / weakness, fevers, immune compromise, or steroids. 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 No history of shingles, denies any recent rashes. No chest pain, SOB, cough, fevers, chills, vomiting. Did experience mild nausea this morning. Past History - Travel History Traveled outside of the country in the last 30 days: No Close contact w/someone who was outside of country & ill: No - Medical History Allergies/Adverse Reactions: Allergies Allergy/AdvReac Type Severity Reaction Status Date / Time enedelia flavor Allergy Intermediate Hives Verified 01/05/20 11:09 Iodinated Contrast Media Allergy Verified 01/05/20 11:09 [Iodinated Contrast Media - IV Dye] iodine Allergy Hives Verified 01/05/20 11:09 Home Medications: Ambulatory Orders Aspirin [ASA -] 81 mg PO Q48H 12/28/13 Amlodipine Besylate [Norvasc -] 5 mg PO DAILY 06/23/15 Paroxetine HCl [Paxil] 20 mg PO DAILY 07/14/15 Alprazolam [Xanax] 0.25 mg PO DAILY PRN 11/27/18 Omeprazole Magnesium [Prilosec Otc] 20 mg PO DAILY 12/01/18 Pravastatin Sodium 20 mg PO HS 12/01/18 Oxycodone HCl/Acetaminophen [Percocet 5-325 mg Tablet] 1 - 2 tab PO Q4H PRN #20 tab MDD 6 12/02/18 Anemia: No Asthma: No Cancer: No Cardiac Disorders: Yes (Valve spasm) CVA: Yes (x 2: 2012) COPD: No CHF: No Dementia: No Diabetes: No GI Disorders: Yes (Heart burn, Cholecystectomy) Disorders: No HTN: Yes Hypercholesterolemia: Yes Kidney Stones: Yes (H/O) Liver Disease: No Psychiatric Problems: Yes (ANXIETY, PANIC ATTACKS) Seizures: No Thyroid Disease: No - Surgical History Abdominal Surgery: Yes Cardiac Surgery: Yes (cardiac catheterization) Cholecystectomy: Yes Lung Surgery: No Neurologic Surgery: No Orthopedic Surgery: No - Immunization History Immunization Up to Date: Yes - Psycho-Social/Smoking History Smoking Status: Yes Smoking History: Current every day smoker Have you smoked in the past 12 months: Yes Number of Cigarettes Smoked Daily: 12 If you are a former smoker, when did you quit?: 11 days ago Information on smoking cessation initiated: No 'Breaking Loose' booklet given: 03/30/17 - Substance Abuse Hx (Audit-C & DAST Scrn) How often the patient has a drink containing alcohol: Monthly or less Number of drinks the patient has on a typical day: 1 or 2 How often the patient has six or more drinks on one occasion: Never Score: In Men: 4 or > Positive; In Women: 3 or > Positive: 1 Screen Result (Pos requires Nsg. Audit-10AR): Negative In the last yr the pt used illegal drug/Rx for NonMed reason: No Score: Yes response is considered Positive: 0 Screen Result (Positive result requires Nsg. DAST-10): Negative Review of Systems - Review of Systems Able to Perform ROS?: Yes Is the patient limited [place] proficient: Yes Constitutional: No: Chills, Fever, Malaise, Weakness HEENTM: No: Blurred Vision, Recent change in vision, Nose Pain, Throat Pain Respiratory: No: Cough, Shortness of Breath, Wheezing Cardiac (ROS): No: Chest Pain, Edema, Irregular Heart Rate, Syncope, Chest Tightness ABD/GI: Yes: Nausea. No: Abdominal Distended, Abd. Pain w/ defecation, Blood Streaked Bowels, Constipated, Diarrhea, Poor Appetite, Poor Fluid Intake, Rectal Bleeding, Vomiting : Yes: Flank Pain, Testicular Pain. No: Burning, Dysuria, Frequency, Hematuria, Testicular Swelling Musculoskeletal: No: Back Pain, Muscle Pain, Muscle Weakness, Neck Pain Integumentary: No: Bruising, Pruritus, Rash Neurological: No: Headache, Numbness, Tingling, Weakness Psychiatric: No: Anxiety, Depression, Stressors, Emotional Problems, Change in Appetite Endocrine: No: Increased Thirst, Increased Urine, Unexplained Weight Gain, Unexplained Weight Loss, Change in Weight Hematologic/Lymphatic: No: Anemia, Blood Clots, Easy Bleeding All Other Systems: Reviewed and Negative *Physical Exam - Vital Signs Last Vital Signs Temp Pulse Resp BP Pulse Ox 98.8 F 89 20 116/77 100 01/05/20 11:09 01/05/20 11:09 01/05/20 11:09 01/05/20 11:09 01/05/20 11:09 - Physical Exam 01/05/20 12:25 Vitals reviewed, AFVSS GEN: Well appearing, appears stated age, NAD, comfortable. AAOx3. HEENT: NCAT, EOMI, PERRL. Sclera anicteric, noninjected. No facial asymmetry. Moist mucous membranes. Normal voice. Trachea midline. CV: RRR, S1/S2, no murmurs / rubs / gallops appreciated. LUNG: CTABL, normal work of breathing. No wheezes, rales, rhonchi. No cough. Speaking full sentences. GI: Soft, NTND with reported pain w/o tenderness suprapubically, +BS, no guarding, no rebound. No masses. EXTREMITIES: 2+ distal pulses. No clubbing / cyanosis / edema. No gross deformity in any extremity. Negative straight leg raise. BACK: No signs of trauma, no deformity, non-tender, negative CVA : Normal external male genitalia, no skin changes, no crepitus, +cremasteric reflex bilaterally, non-tender testes and epididymis. SKIN: Warm, dry, no rashes appreciated, non-jaundiced. PSYCH: Normal mood and affect. Cooperative and appropriate. NEURO: CN grossly intact. Moving all extremities well. Normal strength and sensation grossly. 5+ strength bilateral LE, normal sensation of light touch. 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 Exam notable for comfortable appearing, stable vitals, no neuro deficits, non-tender throughout, normal exam. Concerning for most likely MSK pain, less likely disk herniation, unlikely recurrent sciatic given different quality, also possible UTI / pyelo? highly unlikely torsion given benign exam, also inconsistent with ureterolithiasis. - CBC, CMP, UA, UCx - Motrin for pain - 1L IVF - POCUS renal US with faculty - Further imaging pending labs Anticipated discharge 01/05/20 12:57 - Mild hydronephrosis on the right on POCUS, new since 2018 CTAP - Pain well controlled - Will require urology follow up - No indication for CT at this time, mild pain, no leukocytosis or UTI, 1+ blood and mild hydro c/w uncomplicated stone 01/05/20 14:03 - Pain has significantly improved - Tolerating PO crackers and water - Patient ready for discharge Dispo: Home Discharge - Discharge Information Problems reviewed: Yes Clinical Impression/Diagnosis: Nephrolithiasis Condition: Good Disposition: HOME - Admission No - Follow up/Referral Referrals: Jamison Echeverria MD [Primary Care Provider] - Rach Echeverria MD [Staff Physician] - Mychal Whaley MD [Staff Physician] - - Patient Discharge Instructions Patient Printed Discharge Instructions: DI for Kidney Stones Additional Instructions: You were seen and evaluated for pain. You most likely have a kidney stone. You may take Tylenol and Motrin for your pain. Please follow up with the provided urologist within the next week for continued care. Return to the ED for any new or concerning symptoms including but not limited to: fevers, chills, nausea, vomiting, worsening back pain, passing out. - Post Discharge Activity Work/Back to School Note: Back to Work
[2020-01-05 12:30] LABS: BASO % 1.2 % (0-2.0); EOS % 1.9 % (0-4.5); HEMATOCRIT 40.4 % (35.4-49); HEMOGLOBIN 13.7 GM/dL (11.7-16.9); LYMPH % 30.2 % (8-40); MCH 30.3 pg (25.7-33.7); MCHC 33.9 g/dl (32.0-35.9); MEAN CELL VOLUME 89.2 fl (80-96); MEAN PLT VOLUME 8.8 fl (7.5-11.1); NEUT % 58.7 % (42.8-82.8); PLATELET COUNT 179 K/MM3 (134-434); RBC 4.53 M/mm3 (4.00-5.60); RDW 12.8 % (11.9-15.9); WHITE BLOOD COUNT 6.9 K/mm3 (4.0-10.0)
[2020-01-05] MEDS ORDERED: IBUPROFEN 600 MG TABLET (FP) PO ONE ×2 (12:41→12:53)
[2020-01-05 12:42] LABS: EPI CELLS 1 /uL (0-25.1); HYALINE CASTS 0 /uL (0-3.1); URINE APPEARANCE CLEAR; URINE BACTERIA 1 /uL (0-1359); URINE BILIRUBIN NEGATIVE (NEGATIVE); URINE COLOR YELLOW; URINE GLUCOSE (UA) NEGATIVE (NEGATIVE); URINE KETONE NEGATIVE (NEGATIVE); URINE LEUK ESTERASE NEGATIVE (NEGATIVE); URINE NITRITE NEGATIVE (NEGATIVE); URINE PROTEIN NEGATIVE (NEGATIVE); URINE RBC 4 /uL (0-23.9); URINE UROBILINOGEN 0.2 mg/dL (0.2-1.0); URINE WBC 1 /uL (0-25.8)
[2020-01-05] MEDS ORDERED: LIDOCAINE 5% TOPICAL PATCH TP ONE (12:42)
[2020-01-05] MEDS ORDERED: LIDOCAINE 5% TOPICAL PATCH ONE (12:53)
[2020-01-05 13:09] LABS: ALBUMIN 4.1 g/dl (3.4-5.0); BILIRUBIN,TOTAL 0.4 mg/dL (0.2-1); BLOOD UREA NITROGEN 16.4 mg/dL (7-18); CALCIUM 9.3 mg/dL (8.5-10.1); CREATININE 1.1 mg/dL (0.55-1.3); POTASSIUM 4.3 mmol/L (3.5-5.1); TOT PROT 7.6 g/dl (6.4-8.2)
[2020-01-05] MEDS ORDERED: KETOROLAC TROMETHAMINE 15 MG/ML VIAL IVPUSH ONE (13:33)
--- NOTE | 2020-01-05 14:23 | PDOC ---
Documentation entered by Lqauita Garcia SCRIBE, acting as scribe for Altaf Lewis MD. Altaf Lewis MD: This documentation has been prepared by the Jose turner Ana, SCRIBE, under my direction and personally reviewed by me in its entirety. I confirm that the documentation accurately reflects all work, treatment, procedures, and medical decision making performed by me. Attending Attestation - Resident Resident Name: Nj,Nguyễn - ED Attending Attestation I have performed the following: I have examined & evaluated the patient, The case was reviewed & discussed with the resident, I agree w/resident's findings & plan, Exceptions are as noted - HPI HPI: 01/05/20 12:03 Patient is a 54 year old male with a significant past medical history of anxiety, panic attacks, cervical spinal fusion, kidney stones, chronic R lower back pain, R-sided sciatica, and cholecystitis s/p cholecystectomy, who presents to the ED with R flank pain radiating to his groin. Patient stated his pain began 3 days ago and has gradually been getting worse. 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 However, this pain is different. He states it does feel harjit lar to prior kidney stones. Patient endorses: nausea from earlier today. Patient denies: trauma, weakness, fevers, chills, SOB, cough, vomiting, chest pain, any recent rashes, weight loss, dysuria, frequency, foul odors, hematuria, changes in bowel movements, or any other related symptoms. Allergies: iodine, iodinated contrast media, and enedelia flavor. - Physicial Exam PE: 01/05/20 12:04 See resident exam. - Medical Decision Making 01/05/20 14:25 54 M with R flank pain radiating to groin. Suspect renal colic. - Labs, UA - IVF, pain control 01/05/20 14:25 UA consistent with kidney stone POCUS shows R hydronephrosis Will tx as kidney stone. Pt reassessed - pain well controlled, tolerating PO. Will DC [facility] urology f/u Pt is well appearing, with normal vitals. Clinically stable for DC at this time. I discussed the physical exam findings, ancillary test results and final diagnoses with the patient. I answered all of the patient's questions. The patient was satisfied with the care received and felt comfortable with the discharge plan and treatment plan. The patient agrees to follow up with the primary care physician within 24-72 hours. Discharge - Discharge Information Problems reviewed: Yes Clinical Impression/Diagnosis: Nephrolithiasis, Hematuria, Flank pain Condition: Good Disposition: HOME - Follow up/Referral Referrals: Mychal Whaley MD [Staff Physician] - Jamison Echeverria MD [Primary Care Provider] - Rach Echeverria MD [Staff Physician] - - Patient Discharge Instructions Patient Printed Discharge Instructions: DI for Kidney Stones Additional Instructions: You were seen and evaluated for pain. You most likely have a kidney stone. You may take Tylenol and Motrin for your pain. Please follow up with the provided urologist within the next week for continued care. Return to the ED for any new or concerning symptoms including but not limited to: fevers, chills, nausea, vomiting, worsening back pain, passing out. - Post Discharge Activity Work/Back to School Note: Back to Work
[2020-01-05 15:37] VITALS: BP 135/85; PULSE 77; TEMP 98.2
[2020-01-05] MEDS ORDERED: LIDOCAINE PATCH REMOVAL MC SCH (22:00)
== END 2020-01-05 14:10 | disposition home or self-care (01) ==
LOC: JER 11:06
PROC: 3E0333Z Introduction of Anti-inflammatory into Peripheral Vein, Percutaneous Approach (ICD-10-PCS; principal; 2020-01-05)
PROC: 3E0337Z Introduction of Electrolytic and Water Balance Substance into Peripheral Vein, Percutaneous Approach (ICD-10-PCS; 2020-01-05)
DX: N20.0 Calculus of kidney (principal)
CPT/HCPCS: 36415; 76775; 80053; 81003; 85025; 87086; 99284-25

== ENCOUNTER 2020-04-13 09:21 | Emergency (ER) | payer BC ==
[2020-04-13 09:29] VITALS: BP 115/73; PULSE 89; TEMP 97.7; BMI 32.1
== END 2020-04-13 11:01 | disposition home or self-care (01) ==
LOC: JERFT 09:21
DX: S00.06XA Insect bite (nonvenomous) of scalp, initial encounter (principal)
CPT/HCPCS: 99283-25

== ENCOUNTER 2021-10-03 10:33 | Emergency (ER) | payer BC, OTHER ==
[2021-10-03 10:48] VITALS: BP 148/81; PULSE 77; TEMP 97.9; BMI 32.1
[2021-10-03] MEDS ORDERED: ACETAMINOPHEN 500 MG TABLET (FP) PO ONE (12:46)
[2021-10-03] MEDS ORDERED: ACETAMINOPHEN 325 MG TABLET (FP) ONE (12:52)
[2021-10-03 13:05] LABS: EPI CELLS 1 /uL (0-25.1); HYALINE CASTS 0 /uL (0-3.1); PH,URINE 5.5 (5.0-8.0); URINE APPEARANCE CLEAR; URINE BACTERIA 64 /uL (0-1359); URINE BILIRUBIN NEGATIVE (NEGATIVE); URINE COLOR YELLOW; URINE GLUCOSE (UA) NEGATIVE (NEGATIVE); URINE KETONE NEGATIVE (NEGATIVE); URINE LEUK ESTERASE NEGATIVE (NEGATIVE); URINE NITRITE NEGATIVE (NEGATIVE); URINE PROTEIN NEGATIVE (NEGATIVE); URINE RBC 12 /uL (0-23.9); URINE UROBILINOGEN 0.2 mg/dL (0.2-1.0); URINE WBC 1 /uL (0-25.8)
[2021-10-03 13:48] LABS: BASO % 1.2 % (0-2.0); EOS % 3.1 % (0-4.5); HEMATOCRIT 40.6 % (35.4-49); LYMPH % 32.7 % (8-40); MCH 30.4 pg (25.7-33.7); MCHC 34.4 g/dl (32.0-35.9); MEAN CELL VOLUME 88.4 fl (80-96); MEAN PLT VOLUME 8.6 fl (7.5-11.1); MONO % 8.9 % (3.8-10.2); NEUT % 54.1 % (42.8-82.8); PLATELET COUNT 186 10^3/uL (134-434); RBC 4.59 M/mm3 (4.00-5.60); RDW 12.9 % (11.9-15.9); WHITE BLOOD COUNT 5.9 K/mm3 (4.0-10.0)
[2021-10-03 14:16] LABS: CALCIUM 9.4 mg/dL (8.5-10.1)
[2021-10-03 14:17] LABS: ALBUMIN 4.3 g/dl (3.4-5.0); BLOOD UREA NITROGEN 14.5 mg/dL (7-18)
[2021-10-03 14:20] LABS: CREATININE 0.9 mg/dL (0.55-1.3)
[2021-10-03 14:21] LABS: BILIRUBIN,TOTAL 0.4 mg/dL (0.2-1); TOT PROT 7.6 g/dl (6.4-8.2)
[2021-10-03] MEDS ORDERED: KETOROLAC TROMETHAMINE 15 MG/ML VIAL IVPUSH ONE (14:23)
== END 2021-10-03 15:13 | disposition home or self-care (01) ==
LOC: JER 10:33
DX: R10.9 Unspecified abdominal pain (principal); R91.1 Solitary pulmonary nodule
CPT/HCPCS: 36415; 74176-TC; 80053; 81003; 85025; 87086; 99285-25

== ENCOUNTER 2022-01-27 13:49 | Emergency (ER) | payer BC, OTHER ==
[2022-01-27 13:57] VITALS: BP 150/81; PULSE 91; RESP 18; TEMP 97.9; BMI 31.4
[2022-01-27] MEDS ORDERED: DIPHTH,PERTUSS(ACELL),TET 0.5 ML DISP.SYRIN IM ONE ×2 (15:55→15:56)
== END 2022-01-27 17:06 | disposition home or self-care (01) ==
LOC: JERFT 13:49
PROC: 0HQ0XZZ Repair Scalp Skin, External Approach (ICD-10-PCS; principal; 2022-01-27)
PROC: 0HQ1XZZ Repair Face Skin, External Approach (ICD-10-PCS; 2022-01-27)
PROC: 3E0234Z Introduction of Serum, Toxoid and Vaccine into Muscle, Percutaneous Approach (ICD-10-PCS; 2022-01-27)
DX: S01.81XA Laceration without foreign body of other part of head, initial encounter (principal); S01.21XA Laceration without foreign body of nose, initial encounter; W01.110A Fall on same level from slipping, tripping and stumbling with subsequent striking against sharp glass, initial encounter; Y28.0XXA Contact with sharp glass, undetermined intent, initial encounter
CPT/HCPCS: 90715; 99284-25

== ENCOUNTER 2022-10-23 15:16 | Emergency (ER) | payer BC, OTHER ==
[2022-10-23 15:43] VITALS: BP 144/82; PULSE 92; RESP 20; TEMP 98.8; BMI 29.2
[2022-10-23] MEDS ORDERED: SODIUM CHLORIDE 0.9% 500 ML INFUS.BAG IV ONE (16:08)
[2022-10-23 16:40] LABS: BASO % 0.7 % (0-2.0); EOS % 2.3 % (0-4.5); HEMATOCRIT 38.9 % (35.4-49); HEMOGLOBIN 13.6 GM/dL (11.7-16.9); LYMPH % 17.9 % (8-40); MCH 29.9 pg (25.7-33.7); MCHC 34.9 g/dl (32.0-35.9); MEAN CELL VOLUME 85.6 fl (80-96); MEAN PLT VOLUME 8.5 fl (7.5-11.1); MONO % 9.1 % (3.8-10.2); PLATELET COUNT 170 10^3/uL (134-434); RBC 4.54 M/mm3 (4.00-5.60); RDW 12.9 % (11.9-15.9); WHITE BLOOD COUNT 6.9 K/mm3 (4.0-10.0)
[2022-10-23 17:04] LABS: CALCIUM 9.3 mg/dL (8.5-10.1)
[2022-10-23 17:06] LABS: BLOOD UREA NITROGEN 16.7 mg/dL (7-18); MAGNESIUM 2.2 mg/dL (1.8-2.4)
[2022-10-23 17:07] LABS: CREATININE 0.9 mg/dL (0.55-1.3)
[2022-10-23 17:09] LABS: BILIRUBIN,TOTAL 0.3 mg/dL (0.2-1); TOT PROT 7.3 g/dl (6.4-8.2)
== END 2022-10-23 20:36 | disposition home or self-care (01) ==
LOC: JER 15:16
DX: R42 Dizziness and giddiness (principal); R55 Syncope and collapse
CPT/HCPCS: 36415; 71045-TC-FY; 80053; 83735; 84484; 85025; 93005; 93010; 99285-25

== ENCOUNTER → 2022-11-05 | Emergency (ER) | payer BC ==
[2022-11-05 12:16] VITALS: BP 120/64; PULSE 88; RESP 18; TEMP 98.4; BMI 32.1
== END ==
LOC: JERFT 12:03
DX: F41.0 Panic disorder [episodic paroxysmal anxiety] (principal)
CPT/HCPCS: 99281-25

== ENCOUNTER 2022-12-05 18:14 | Emergency (ER) | payer BC ==
[2022-12-05 18:31] VITALS: BP 128/78; PULSE 78; RESP 19; TEMP 98.4; BMI 32.1
== END 2022-12-05 20:02 | disposition left against medical advice (07) ==
LOC: JER 18:14
DX: R06.02 Shortness of breath (principal); R10.9 Unspecified abdominal pain; F41.0 Panic disorder [episodic paroxysmal anxiety]
CPT/HCPCS: 93005; 93010; 99281-25

== ENCOUNTER 2023-01-20 07:49 | Emergency (ER) | payer BC, OTHER ==
[2023-01-20 08:11] VITALS: BP 156/100; PULSE 109; RESP 20; TEMP 98; BMI 32.1
== END 2023-01-20 10:00 | disposition left against medical advice (07) ==
LOC: JER 07:49
DX: M43.6 Torticollis (principal); M54.2 Cervicalgia; R10.9 Unspecified abdominal pain
CPT/HCPCS: 82962; 93005; 93010; 99284-25